=== PATIENT | male | born 1985 | race Caucasian/White ===

== ENCOUNTER 2018-08-02 15:08 | Emergency (ER) | payer OTHER ==
[2018-08-02 15:19] VITALS: RESP 18
[2018-08-02] MEDS ORDERED: KETOROLAC 30 MG/ML 1 ML VIAL IM STA (15:48)
--- NOTE | 2018-08-02 15:51 | ED ---
General Adult HPI - General Chief complaint: Urogenital Stated complaint: Hematuria Time Seen by Provider: 08/02/18 15:15 Source: patient, RN notes reviewed Mode of arrival: ambulatory Limitations: no limitations - History of Present Illness Initial comments: This is a 33-year-old male who presents emergency Department complaining that he has dark urine. Patient states started this morning when he got to work he started having some bilateral back pain in the area of his kidneys. Patient denies any dysuria patient denies any urinary frequency. Patient states she hasn't been sexually active in 6 years. Patient denies any abdominal pain. Patient denies similar symptoms in the past. Patient denies any flank pain according pain or testicular pain. Patient denies any recent fever chills. Patient currently is not experiencing any pain. - Related Data Home Medications Medication Instructions Recorded Confirmed Ibuprofen [Motrin Ib] 400 - 600 mg PO Q6H PRN 08/02/18 08/02/18 Previous Rx's Medication Instructions Recorded Ketorolac [Toradol] 10 mg PO Q6HR #15 tab 08/02/18 Allergies Allergy/AdvReac Type Severity Reaction Status Date / Time No Known Allergies Allergy Verified 08/02/18 15:59 Review of Systems ROS Statement: Those systems with pertinent positive or pertinent negative responses have been documented in the HPI. ROS Other: All systems not noted in ROS Statement are negative. Past Medical History Past Medical History: No Reported History History of Any Multi-Drug Resistant Organisms: None Reported Past Surgical History: Appendectomy Past Psychological History: No Psychological Hx Reported Smoking Status: Current every day smoker Past Alcohol Use History: Occasional Past Drug Use History: None Reported General Exam - General Exam Comments Initial Comments: GENERAL: Patient is well-developed and well-nourished. Patient is nontoxic and well- hydrated and is in no acute distress. ENT: Neck is soft and supple. No significant lymphadenopathy is noted. Oropharynx is clear. Moist mucous membranes. Neck has full range of motion without eliciting any pain. EYES: The sclera were anicteric and conjunctiva were pink and moist. Extraocular movements were intact and pupils were equal round and reactive to light. Eyelids were unremarkable. PULMONARY: Unlabored respirations. Good breath sounds bilaterally. No audible rales rhonchi or wheezing was noted. CARDIOVASCULAR: There is a regular rate and rhythm without any murmurs gallops or rubs. ABDOMEN: Soft and nontender with normal bowel sounds. GENITAL: Genitalia exam showed no acute abnormality no signs of any bleeding. Scrotal exam was normal. Testicle exam was normal. No signs of any hernia SKIN: Skin is clear with no lesions or rashes and otherwise unremarkable. NEUROLOGIC: Patient is alert and oriented x3. Cranial nerves II through XII are grossly intact. Motor and sensory are also intact. Normal speech, volume and content. Symmetrical smile. MUSCULOSKELETAL: Normal extremities with adequate strength and full range of motion. LYMPHATICS: No significant lymphadenopathy is noted PSYCHIATRIC: Normal psychiatric evaluation. Limitations: no limitations Course Vital Signs 08/02/18 15:15 Temperature 99.2 F Pulse Rate 88 Respiratory 18 Rate Blood Pressure 148/95 O2 Sat by Pulse 100 Oximetry Medical Decision Making - Medical Decision Making Patient's CT of the abdomen and pelvis show a 3 mm kidney stone the left side. Patient received Toradol shot emergency department felt considerably better. - Lab Data Result diagrams: 08/02/18 15:48 08/02/18 15:48 Lab Results 08/02/18 08/02/18 08/02/18 Range/Units 15:48 15:48 15:48 WBC 11.9 H (3.8-10.6) k/uL RBC 4.23 L (4.30-5.90) m/uL Hgb 13.9 (13.0-17.5) gm/dL Hct 40.8 (39.0-53.0) % MCV 96.5 (80.0-100.0) fL MCH 32.9 (25.0-35.0) pg MCHC 34.1 (31.0-37.0) g/dL RDW 12.3 (11.5-15.5) % Plt Count 199 (150-450) k/uL Neutrophils % 77 % Lymphocytes % 15 % Monocytes % 6 % Eosinophils % 1 % Basophils % 0 % Neutrophils # 9.1 H (1.3-7.7) k/uL Lymphocytes # 1.7 (1.0-4.8) k/uL Monocytes # 0.7 (0-1.0) k/uL Eosinophils # 0.1 (0-0.7) k/uL Basophils # 0.1 (0-0.2) k/uL Sodium 140 (137-145) mmol/L Potassium 3.7 (3.5-5.1) mmol/L Chloride 105 (98-107) mmol/L Carbon Dioxide 28 (22-30) mmol/L Anion Gap 7 mmol/L BUN 10 (9-20) mg/dL Creatinine 0.62 L (0.66-1.25) mg/dL Est GFR (CKD-EPI)AfAm >90 (>60 ml/min/1.73 sqM) Est GFR (CKD-EPI)NonAf >90 (>60 ml/min/1.73 sqM) Glucose 111 H (74-99) mg/dL Calcium 9.8 (8.4-10.2) mg/dL Total Bilirubin 0.6 (0.2-1.3) mg/dL AST 47 (17-59) U/L ALT 55 (21-72) U/L Alkaline Phosphatase 69 (38-126) U/L Total Protein 7.3 (6.3-8.2) g/dL Albumin 4.6 (3.5-5.0) g/dL Urine Color Light Red Urine Appearance Cloudy (Clear) Urine pH 7.0 (5.0-8.0) Ur Specific [place] 1.008 (1.001-1.035) Urine Protein 1+ H (Negative) Urine Glucose (UA) Negative (Negative) Urine Ketones Negative (Negative) Urine Blood Large H (Negative) Urine Nitrite Negative (Negative) Urine Bilirubin Negative (Negative) Urine Urobilinogen <2.0 (<2.0) mg/dL Ur Leukocyte Esterase Large H (Negative) Urine RBC >182 H (0-5) /hpf Urine WBC <1 (0-5) /hpf Urine Mucus Rare H (None) /hpf Disposition Clinical Impression: Kidney stone Disposition: HOME SELF-CARE Instructions (If sedation given, give patient instructions): Kidney Stones (ED) Prescriptions: Ketorolac [Toradol] 10 mg PO Q6HR #15 tab Is patient prescribed a controlled substance at d/c from ED?: No Referrals: None,Stated [Primary Care Provider] - 1-2 days Time of Disposition: 17:02
[2018-08-02 16:02] LABS: Basophils # (A) 0.1 k/uL (0-0.2); Basophils % (A) 0 %; Eosinophils # (A) 0.1 k/uL (0-0.7); Eosinophils % (A) 1 %; HCT 40.8 % (39.0-53.0); HGB 13.9 gm/dL (13.0-17.5); Lymphocytes # (A) 1.7 k/uL (1.0-4.8); Lymphocytes % (A) 15 %; MCH 32.9 pg (25.0-35.0); MCHC 34.1 g/dL (31.0-37.0); MCV 96.5 fL (80.0-100.0); Mean Platelet Volume 7.4; Monocytes # (A) 0.7 k/uL (0-1.0); Monocytes % (A) 6 %; Neutrophils # (A) 9.1 k/uL (1.3-7.7); Neutrophils % (A) 77 %; Platelet Count 199 k/uL (150-450); RBC 4.23 m/uL (4.30-5.90); RDW 12.3 % (11.5-15.5); WBC 11.9 k/uL (3.8-10.6)
[2018-08-02 16:12] LABS: Appearance,Urine Cloudy (Clear); Bilirubin,Urine Negative (Negative); Blood,Urine Large (Negative); Color,Urine Light Red; Glucose,Urine (UA) Negative (Negative); Ketones,Urine Negative (Negative); Leukocyte Esterase,Urine Large (Negative); Mucus,Urine Rare /hpf; Nitrite,Urine Negative (Negative); Protein,Urine 1+ (Negative); RBC,Urine >182 /hpf (0-5); Specific Gravity,Urine 1.008 (1.001-1.035); Urobilinogen,Urine <2.0 mg/dL (<2.0); WBC,Urine <1 /hpf (0-5)
[2018-08-02 16:14] LABS: ALT 55 U/L (21-72); AST 47 U/L (17-59); Albumin 4.6 g/dL (3.5-5.0); Alkaline Phosphatase 69 U/L (38-126); Anion Gap 7 mmol/L; Blood Urea Nitrogen 10 mg/dL (9-20); Calcium 9.8 mg/dL (8.4-10.2); Carbon Dioxide 28 mmol/L (22-30); Chloride 105 mmol/L (98-107); Glucose 111 mg/dL (74-99); Potassium 3.7 mmol/L (3.5-5.1); Sodium 140 mmol/L (137-145); Total Bilirubin 0.6 mg/dL (0.2-1.3); Total Protein 7.3 g/dL (6.3-8.2)
--- NOTE | 2018-08-02 16:56 | CT ---
EXAMINATION TYPE: CT abdomen pelvis wo con DATE OF EXAM: 08/02/2018 COMPARISON: HISTORY: Hematuria CT DLP: 501.3 mGycm Automated exposure control for dose reduction was used. TECHNIQUE: Helical acquisition of images was performed from the lung bases through the pelvis. FINDINGS: Lung bases are clear. There is no pleural effusion. There is no pericardial effusion. Stomach spleen pancreas liver gallbladder appear normal. Bile ducts are not dilated. There is no adrenal mass. The kidneys have normal size and contour. There is no hydronephrosis. There is 3 mm calculus lower pole right kidney. There is no retroperitoneal adenopathy. There is a 3 mm ca lcification that appears to be in the lower left ureter at the level of the inferior sacroiliac joint . There is only minimal ectasia of the left renal pelvis and left ureter. Bladder distends smoothly. There is no inguinal hernia. There is no free fluid in the pelvis. There i s no mesenteric edema. There is no ascites. There is no sign of free air. There is no sign of a bowel obstruction. Appendix is not definitely seen. There is no sign of a thickened appendix. The bony str uctures are intact. Bony pelvis is intact. IMPRESSION: NONOBSTRUCTING RIGHT RENAL CALCULUS. 3 MM CALCULUS IN THE LOWER LEFT URETER WITH minimal ectasia of the left upper collecting system consi stent with mild obstruction.
[2018-08-02 17:14] VITALS: BP 137/78; PULSE 76; TEMP 98
== END 2018-08-02 17:14 | disposition home or self-care (01) ==
LOC: EC 15:08
DX: N20.0 Calculus of kidney (principal); F17.200 Nicotine dependence, unspecified, uncomplicated; Z90.49 Acquired absence of other specified parts of digestive tract
CPT/HCPCS: 36415; 80053; 85025; 81001; 74176; 99284; 96372; J1885

== ENCOUNTER 2020-02-15 12:19 | Emergency (ER) | payer OTHER ==
--- NOTE | 2020-02-15 12:56 | ED ---
General Adult HPI - General Stated complaint: pickup order Time Seen by Provider: 02/15/20 12:26 Source: patient, police, RN notes reviewed Mode of arrival: ambulatory Limitations: no limitations - History of Present Illness Initial comments: 34-year-old male presents emergency Department with chief complaint of psychiatric evaluation. Patient was brought to emergency department, court pickup order. Patient states that is not homicidal or suicidal he states he does have a history of depression he states that he has made threats of harm himself but states currently is not suicidal. Patient states that his mother, family is worried about him because he reportedly broke some stuff in his house. States that this was nothing of major and states that he has no complaints at this time. Denies any prior psychiatric admissions. - Related Data Home Medications Medication Instructions Recorded Confirmed No Known Home Medications 02/15/20 02/15/20 Allergies Allergy/AdvReac Type Severity Reaction Status Date / Time No Known Allergies Allergy Verified 02/15/20 13:18 Review of Systems ROS Statement: Those systems with pertinent positive or pertinent negative responses have been documented in the HPI. ROS Other: All systems not noted in ROS Statement are negative. Past Medical History Past Medical History: No Reported History History of Any Multi-Drug Resistant Organisms: None Reported Past Surgical History: Appendectomy Past Psychological History: No Psychological Hx Reported Smoking Status: Current every day smoker Past Alcohol Use History: Daily, Heavy Past Drug Use History: Marijuana General Exam Limitations: no limitations General appearance: alert, in no apparent distress Head exam: Present: atraumatic, normocephalic, normal inspection Eye exam: Present: normal appearance, PERRL, EOMI. Absent: scleral icterus, conjunctival injection, periorbital swelling ENT exam: Present: normal exam, mucous membranes moist Neck exam: Present: normal inspection, full ROM. Absent: tenderness, meningismus, lymphadenopathy Respiratory exam: Present: normal lung sounds bilaterally. Absent: respiratory distress, wheezes, rales, rhonchi, stridor Cardiovascular Exam: Present: regular rate, normal rhythm, normal heart sounds. Absent: systolic murmur, diastolic murmur, rubs, gallop, clicks GI/Abdominal exam: Present: soft, normal bowel sounds. Absent: distended, tenderness, guarding, rebound, rigid Neurological exam: Present: alert, oriented X3, CN II-XII intact Psychiatric exam: Present: flat affect Skin exam: Present: warm, dry, intact, normal color. Absent: rash Course Vital Signs 02/15/20 12:35 Temperature 98.5 F Pulse Rate 88 Respiratory 16 Rate Blood Pressure 159/103 O2 Sat by Pulse 98 Oximetry Medical Decision Making - Medical Decision Making 34-year-old presented for pickup order psychiatric evaluation patient contracts to safety is not suicidal homicidal be discharged. - Lab Data Lab Results 02/15/20 Range/Units 13:03 Urine Opiates Screen Not Detected (NotDetected) Ur Oxycodone Screen Not Detected (NotDetected) Urine Methadone Screen Not Detected (NotDetected) Ur Propoxyphene Screen Not Detected (NotDetected) Ur Barbiturates Screen Not Detected (NotDetected) U Tricyclic Antidepress Not Detected (NotDetected) Ur Phencyclidine Scrn Not Detected (NotDetected) Ur Amphetamines Screen Detected H (NotDetected) U Methamphetamines Scrn Detected H (NotDetected) U Benzodiazepines Scrn Not Detected (NotDetected) Urine Cocaine Screen Not Detected (NotDetected) U Marijuana (THC) Screen Detected H (NotDetected) Disposition Clinical Impression: Depression Disposition: HOME SELF-CARE Condition: Stable Instructions (If sedation given, give patient instructions): Depression (ED) Additional Instructions: Please return to the Emergency Department if symptoms worsen or any other concerns. Is patient prescribed a controlled substance at d/c from ED?: No Referrals: None,Stated [Primary Care Provider] - 1-2 days Time of Disposition: 14:56
[2020-02-15 14:07] LABS: Amphetamine Screen,Urine Detected (NotDetected); Barbiturate Screen,Urine Not Detected (NotDetected); Benzodiazepines Screen,Urine Not Detected (NotDetected); Cocaine Screen,Urine Not Detected (NotDetected); Methadone Screen, Urine Not Detected (NotDetected); Opiate Screen,Urine Not Detected (NotDetected); Oxycodone Screen, Urine Not Detected (NotDetected); Phencyclidine Screen,Urine Not Detected (NotDetected); Tricyclic Antidepressant,Urine Not Detected (NotDetected); Urn Cannabinoid Scrn Detected (NotDetected)
[2020-02-15 15:05] VITALS: BP 150/102; PULSE 99; RESP 14; TEMP 98.6
== END 2020-02-15 15:02 | disposition home or self-care (01) ==
LOC: EC 12:19
DX: F32.9 Major depressive disorder, single episode, unspecified (principal); F17.200 Nicotine dependence, unspecified, uncomplicated
CPT/HCPCS: 80306; 82075; 99284

== ENCOUNTER 2020-09-23 20:04 | Emergency (ER) | payer OTHER ==
[2020-09-23 20:18] VITALS: BP 143/90; PULSE 103; RESP 20; TEMP 98.7
--- NOTE | 2020-09-23 20:57 | XR ---
EXAMINATION TYPE: XR ribs LT w pa chest xray DATE OF EXAM: 09/23/2020 COMPARISON: NONE HISTORY: Rib pain TECHNIQUE: 5 views FINDINGS: Heart and mediastinum are normal. Lungs are clear of consolidation. There is no pleural eff usion or pneumothorax. The left ribs appear intact. IMPRESSION: Normal chest. Normal left ribs.
[2020-09-23] MEDS ORDERED: ACET/COD 300 MG/30 MG STARTER PACK 6 TAB BTL PO STA (21:26)
[2020-09-23] MEDS ORDERED: LIDOCAINE 5% PATCH TOPICAL STA (21:26)
[2020-09-23] MEDS ORDERED: MORPHINE SULFATE 4 MG/ML SYRINGE IM STA (21:26)
[2020-09-23] MEDS ORDERED: KETOROLAC 15 MG/ML 1 ML VIAL IM STA (21:26)
--- NOTE | 2020-09-23 21:28 | ED ---
General Adult HPI - General Chief complaint: Chest Pain Stated complaint: chest pain Time Seen by Provider: 09/23/20 20:32 Source: patient, family Mode of arrival: ambulatory Limitations: no limitations - History of Present Illness Initial comments: 35-year-old male patient presents to the emergency department today for evaluation of left lateral rib pain. She states that 5 days ago he was wrestling around with another melvni, states that he did fall landed on his ribs. States his been having rib pain since then. Pain worsens with deep breathing or coughing. States movement makes the pain worse as well. Denies any neck or back pain. Denies any other injuries. Denies any hemoptysis. States he has been taking ibuprofen without relief. Patient denies any headache, neck pain, back pain, shortness of breath, dizziness, weakness, abdominal pain, nausea, vomiting, or difficulties with bowel movements or urination. - Related Data Previous Rx's Medication Instructions Recorded HYDROcodone/APAP 5-325MG [Temple 5] 1 each PO Q6HR PRN #12 tab 09/23/20 Lidocaine 5% Patch [Lidoderm] 1 patch TOPICAL DAILY #30 patch 09/23/20 Allergies Allergy/AdvReac Type Severity Reaction Status Date / Time No Known Allergies Allergy Verified 09/23/20 20:18 Review of Systems ROS Statement: Those systems with pertinent positive or pertinent negative responses have been documented in the HPI. ROS Other: All systems not noted in ROS Statement are negative. Past Medical History Past Medical History: No Reported History History of Any Multi-Drug Resistant Organisms: None Reported Past Surgical History: Appendectomy Past Psychological History: No Psychological Hx Reported Smoking Status: Current every day smoker Past Alcohol Use History: Daily, Heavy Past Drug Use History: Marijuana General Exam Limitations: no limitations General appearance: alert, in no apparent distress Neck exam: Present: normal inspection, full ROM. Absent: tenderness, meningismus, lymphadenopathy Respiratory exam: Present: normal lung sounds bilaterally, chest wall tenderness (Left lateral ribs, there is some faint ecchymosis noted over the left lateral ribs as well.). Absent: respiratory distress, wheezes, rales, rhonchi, stridor Cardiovascular Exam: Present: regular rate, normal rhythm, normal heart sounds. Absent: systolic murmur, diastolic murmur, rubs, gallop, clicks GI/Abdominal exam: Present: soft, normal bowel sounds. Absent: distended, tenderness, guarding, rebound, rigid Back exam: Present: normal inspection. Absent: vertebral tenderness Neurological exam: Present: alert, oriented X3, CN II-XII intact Psychiatric exam: Present: normal affect, normal mood Skin exam: Present: warm, dry, intact, normal color. Absent: rash Course Vital Signs 09/23/20 09/23/20 20:14 20:34 Temperature 98.7 F Pulse Rate 103 H Respiratory 20 20 Rate Blood Pressure 143/90 O2 Sat by Pulse 98 Oximetry EKG Findings - EKG Comments: EKG Findings:: EKG obtained at 2021 shows normal sinus rhythm with a ventricular rate of 91, P interval 138, QRS duration 92, QT 326, QTc 400. No evidence of ST elevation or depression. Medical Decision Making - Medical Decision Making 35-year-old male patient presents to the emergency department today for evaluation of left lateral rib tenderness and pain. Physical examination did reveal some faint ecchymosis and tenderness over the left lateral ribs. Lungs are clear to auscultation. X-ray of the left ribs and chest was unremarkable. No evidence for displaced rib fracture. I did discuss possibility of occult hairline fracture. He does have an incentive spirometer at home. He is given pain medications. Instructed to follow-up with his primary care physician for recheck in 1-2 days. Return parameters were discussed in detail. He verbalizes understanding and agrees with this plan. My attending is Dr. Burnett. - Radiology Data Radiology results: report reviewed, image reviewed 5 views of the left ribs and chest are obtained. Note normal chest, normal left ribs. Disposition Clinical Impression: Rib pain on left side Disposition: HOME SELF-CARE Condition: Good Instructions (If sedation given, give patient instructions): Rib Fracture (ED) Additional Instructions: Take medications as directed. Perform coughing and deep breathing exercises 10 times an hour while awake. Use incentive spirometer 10 times hour while awake as well. Follow-up with your primary care physician for recheck in 1-2 days. Return for any new, worsening, or concerning symptoms. Prescriptions: Lidocaine 5% Patch [Lidoderm] 1 patch TOPICAL DAILY #30 patch HYDROcodone/APAP 5-325MG [Temple 5] 1 each PO Q6HR PRN #12 tab PRN Reason: Pain Is patient prescribed a controlled substance at d/c from ED?: Yes When asked, does pt state using other controlled substances?: No If prescribed controlled substance>3 days was MAPS reviewed?: Prescribed <3 Days If opioid is for acute pain is fill amount 7 days or less?: Yes If Rx opioid, was Start Talking consent form obtained?: Yes Referrals: None,Stated [Primary Care Provider] - 1-2 days Time of Disposition: 21:28
== END 2020-09-23 21:49 | disposition home or self-care (01) ==
LOC: EC 20:04
DX: S20.212A Contusion of left front wall of thorax, initial encounter (principal); F17.200 Nicotine dependence, unspecified, uncomplicated; W19.XXXA Unspecified fall, initial encounter; Y93.72 Activity, wrestling
CPT/HCPCS: 93005; 71101; 99284; 96372 ×2; J2270; J1885

== ENCOUNTER 2021-01-26 00:24 | Observation (INO) | payer OTHER ==
--- NOTE | 2021-01-26 02:09 | ED ---
Psych HPI <Raul French - Last Filed: 01/26/21 17:06> - General Source: patient, family, RN notes reviewed, old records reviewed Mode of arrival: ambulatory Limitations: no limitations - History of Present Illness MD Complaint: feels depressed -: days(s) Associated Psychiatric Symptoms: depression, suicidal ideation Quality: constant Improves With: none Worsens With: alcohol Context: not taking psychiatric medications, significant life stressor Associated Symptoms: denies other symptoms Treatments Prior to Arrival: placed on mental health hold <Vaibhav Burnett - Last Filed: 01/27/21 01:06> - General Chief Complaint: Psychiatric Symptoms Stated Complaint: Mental Health, Alcohol Time Seen by Provider: 01/26/21 01:08 - History of Present Illness Initial Comments: This is a 35-year-old male to the emergency department today. Patient presents today for evaluation of psychiatric illness with significant alcohol intoxication. Patient has significant INTOXICATION here in the ER poor historian secondary to stay he shouldn't does state that he has significant depression issues (Vaibhav Burnett) - Related Data Home Medications Medication Instructions Recorded Confirmed No Known Home Medications 01/26/21 01/26/21 Allergies Allergy/AdvReac Type Severity Reaction Status Date / Time No Known Allergies Allergy Verified 01/26/21 07:05 Review of Systems ROS Other: All systems not noted in ROS Statement are negative. <Raul French - Last Filed: 01/26/21 17:06> ROS Other: All systems not noted in ROS Statement are negative. <Vaibhav Burnett - Last Filed: 01/27/21 01:06> ROS Statement: Those systems with pertinent positive or pertinent negative responses have been documented in the HPI. Past Medical History Past Medical History: No Reported History History of Any Multi-Drug Resistant Organisms: None Reported Past Surgical History: Appendectomy Past Psychological History: Anxiety, Depression Smoking Status: Current every day smoker Past Alcohol Use History: Daily, Heavy Past Drug Use History: Marijuana <Vaibhav Burnett - Last Filed: 01/27/21 01:06> General Exam Limitations: no limitations General appearance: alert, in no apparent distress, appears intoxicated Head exam: Present: atraumatic, normocephalic, normal inspection Eye exam: Present: normal appearance, PERRL, EOMI. Absent: scleral icterus, conjunctival injection, periorbital swelling ENT exam: Present: normal exam, mucous membranes moist Neck exam: Present: normal inspection. Absent: tenderness, meningismus, lymphadenopathy Respiratory exam: Present: normal lung sounds bilaterally. Absent: respiratory distress, wheezes, rales, rhonchi, stridor Cardiovascular Exam: Present: regular rate, normal rhythm, normal heart sounds. Absent: systolic murmur, diastolic murmur, rubs, gallop, clicks GI/Abdominal exam: Present: soft, normal bowel sounds. Absent: distended, tenderness, guarding, rebound, rigid Extremities exam: Present: normal inspection, full ROM, normal capillary refill. Absent: tenderness, pedal edema, joint swelling, calf tenderness Back exam: Present: normal inspection Neurological exam: Present: alert, oriented X3, CN II-XII intact Psychiatric exam: Present: normal affect, normal mood Skin exam: Present: warm, dry, intact, normal color. Absent: rash <Vaibhav Burnett - Last Filed: 01/27/21 01:06> Course <Vaibhav Burnett - Last Filed: 01/27/21 01:06> Vital Signs 01/26/21 01/26/21 01/26/21 00:28 03:00 06:00 Temperature 98.5 F Pulse Rate 80 66 77 Respiratory 22 18 18 Rate Blood Pressure 154/104 139/81 O2 Sat by Pulse 98 95 Oximetry 01/26/21 01/26/21 01/26/21 08:00 09:00 10:00 Temperature Pulse Rate Respiratory 18 18 18 Rate Blood Pressure O2 Sat by Pulse Oximetry 01/26/21 01/26/21 11:00 18:00 Temperature 99 F Pulse Rate 90 Respiratory 18 18 Rate Blood Pressure 115/87 O2 Sat by Pulse 97 Oximetry - Reevaluation(s) Reevaluation #1: 01/26/21 02:15 Medical record is reviewed (Vaibhav Burnett) Medical Decision Making <Raul French - Last Filed: 01/26/21 17:06> <Vaibhav Burnett - Last Filed: 01/27/21 01:06> - Medical Decision Making Patient care signed out to me by previous shift physician Dr. Kendall. Patient is a 35-year-old male presents to emergency Department for suicidal ideation and alcohol intoxication. Patient was pending sobriety and EPS evaluation. Patient was initially to be admitted to 3 for EPS recommendations however patient is covered positive. He is evaluated at bedside at 4:00 PM. Denies any respiratory symptoms however he has been having chills for the last 3 days. Vital signs reviewed. Patient's afebrile. I bedside he is not showing any signs respiratory distress is not hypoxic. Patient will be admitted to medicine floor. He is given monoclonal antibodies. Psychiatry will be on consult. (Raul French) 35 male DF for evaluation of alcohol intoxication patient is found to have positive coronavirus and will be admitted for coronavirus and psychiatric evaluation and treatment (Vaibhav Burnett) - Lab Data Lab Results 01/26/21 Range/Units 15:12 Coronavirus (PCR) Detected A (Not Detectd) Disposition <Raul French - Last Filed: 01/26/21 17:06> <Vaibhav Burnett - Last Filed: 01/27/21 01:06> Clinical Impression: Suicidal ideation, COVID-19 Disposition: ADMITTED IP TO THIS HOSP Condition: Fair
[2021-01-26] MEDS ORDERED: NALOXONE 0.4 MG/ML 1 ML VIAL IV PRN (16:13)
[2021-01-26] MEDS ORDERED: SODIUM CHLORIDE 0.9% 50 ML IVPB ONE (17:00)
[2021-01-26] MEDS ORDERED: CASIRIVIMAB (REGN10933) (EUA) 600 MG, IMDEVIMAB (REGN10987) (EUA) 600 MG in SODIUM CHLO... IVPB ONE (17:00)
--- NOTE | 2021-01-26 18:23 | P.HPIM ---
History of Present Illness H&P Date: 01/26/21 Chief Complaint: Suicidal ideation, Covid positive 35-year-old man, unvaccinated, with history of major depressive disorder, marijuana use presented with suicidal ideation and attempted suicide. Patient has relative at bedside who informs me that patient has been having mental health issues in the last few days, approximately 2 days ago had an episode where he intended to shoot himself in the head with a gun. He was finally convinced to come into the emergency room for mental health evaluation. He was seen by EPS who recommended admission to the mental health unit, however, patient tested positive for Covid. Therefore, medicine was asked to admit the patient with psychiatry consult. Patient has some chills, but is not dyspneic or hypoxic nor is he feverish, no loss of smell, no myalgias. No other issues including chest pain, nausea, vomiting, palpitations, syncope, PCP, abdominal pain, constipation, diarrhea, numbness/weakness, dysuria, dyschezia. Patient was given monoclonal antibody in the emergency room. Patient is hemodynamically stable. No labs or imaging to review. Review of Systems All Systems reviewed and pertinent positives and negatives noted in HPI, all other symptoms are negative Past Medical History Past Medical History: No Reported History History of Any Multi-Drug Resistant Organisms: None Reported Past Surgical History: Appendectomy Past Psychological History: Anxiety, Depression Smoking Status: Current every day smoker Past Alcohol Use History: Daily, Heavy Past Drug Use History: Marijuana Medications and Allergies Home Medications Medication Instructions Recorded Confirmed Type No Known Home Medications 01/26/21 01/26/21 History Allergies Allergy/AdvReac Type Severity Reaction Status Date / Time No Known Allergies Allergy Verified 01/26/21 07:05 Physical Exam Osteopathic Statement: *. No significant issues noted on an osteopathic structural exam other than those noted in the History and Physical/Consult. Vitals: Vital Signs Temp Pulse Resp BP Pulse Ox 01/26/21 11:00 18 01/26/21 10:00 18 01/26/21 09:00 18 01/26/21 08:00 18 01/26/21 06:00 77 18 01/26/21 03:00 66 18 139/81 95 01/26/21 00:28 98.5 F 80 22 154/104 98 Intake and Output 01/26/21 01/26/21 01/26/21 06:59 14:59 22:59 Other: Weight 79.379 kg Gen: awake, alert HEENT: normocephalic, atraumatic, good hearing acuity, moist mucous membranes Resp: good air exchange, breathing comfortably with no accessory muscle use CVS: good distal perfusion x 4, GI: soft, NTTP, ND : no SPT, no CVAT, marley catheter not present MSK: no pitting edema, no clubbing Neuro: non-focal, moving all extremities Psych: cooperative, euthymic mood Results Labs: Abnormal Lab Results - Last 24 Hours (Table) 01/26/21 Range/Units 15:12 Coronavirus (PCR) Detected A (Not Detectd) Assessment and Plan Assessment: Major depressive disorder Suicidal ideation with intent -Psychiatry consult -One-to-one sitter Covid -Contact/droplet precautions -Quarantine for next 14 days Patient is full code
--- NOTE | 2021-01-27 16:13 | P.PN ---
Subjective Progress Note Date: 01/27/21 No new complaints. Pending psych consult. Objective - Vital Signs Vital signs: Vital Signs Temp 99.1 F 01/27/21 06:33 Pulse 88 01/27/21 10:00 Resp 18 01/27/21 10:00 BP 142/72 01/27/21 10:00 Pulse Ox 99 01/27/21 10:00 - Exam Gen: awake, alert HEENT: normocephalic, atraumatic, good hearing acuity, moist mucous membranes Resp: good air exchange, breathing comfortably with no accessory muscle use CVS: good distal perfusion x 4, GI: soft, NTTP, ND : no SPT, no CVAT, marley catheter not present MSK: no pitting edema, no clubbing Neuro: non-focal, moving all extremities Psych: cooperative, euthymic mood Assessment and Plan Assessment: Major depressive disorder Suicidal ideation with intent -Psychiatry consult -One-to-one sitter Covid -Contact/droplet precautions -Quarantine for next 13 days Patient is full code
[2021-01-28 06:35] VITALS: TEMP 98.9
[2021-01-28 11:50] VITALS: RESP 18
--- NOTE | 2021-01-28 14:16 | P.CN ---
Psychiatric Consult - . Consult date: 01/28/21 Consult:: IDENTIFYING DATA: Ishaan is a 35-year-old single male who presented to the ED with acute alcohol intoxication and suicidal ideation. HISTORY OF PRESENT ILLNESS: He presented to the ED with a breath alcohol level of 308. He complained about feeling depressed and having suicidal ideation. He perseverated about discovering the body of the girlfriend after she hung herself in a closet. He feels guilty over her and ruminates over the trauma when he is intoxicated. He expressed suicidal thoughts to the EPS nurse did not express a specific plan. He was not referred for psychiatric admission because he was COVID positive. I evaluated him after he had been in the ED for 72 hours. He described moderate alcohol withdrawal symptoms including diaphoresis, tremor, and nausea. He denied tactile, auditory or visual disturbances. He stated that he "always" become suicidal when he drinks too much." He has a 10 year history of an alcohol use disorder. He drinks between one pint and one fifth of liquor daily. He is had no period of sobriety during the 10 years. He stated the only time he has been sobor has been the last 3 days in the ED. He has never participated in a residential substance abuse treatment program. He is never attended Alcoholics Anonymous. He has never experienced severe all symptoms suggestive of delirium. He denied use of other drugs with the exception of marijuana. He complains of feelings of depression denied hopelessness, helplessness or worthlessness. He denied history of suicide attempts or gestures. He denied persistent anxiety but described recurrent intrusive thoughts about the suicide of an ex-girlfriend. He denied periods of elevated mood or sustained irritability suggestive of suyapa or hypomania. He denied experiencing auditory, visual or olfactory hallucinations or other symptoms of psychosis. PAST PSYCHIATRIC HISTORY: He denied a history of psychiatric treatment he has had no psychiatric hospitalizations. PAST MEDICAL HISTORY: See medical history and physical ALLERGIES: Known drug ALLERGIES SUBSTANCE USE HISTORY: As above FAMILY PSYCHIATRIC/SUBSTANCE USE HISTORY: Unaware of family history of substance use problems. SOCIAL HISTORY: His born and raised in [place]. He graduated from high school. 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 He is unmarried and has no children. He has a close relationship with an ex-girlfriend's child. He currently lives with another girlfriend. MENTAL STATUS EXAM: He presented as a somewhat disheveled appearing male was tremulous and restless. He made eye contact and attended to the interview. He had no distinction features are prominent physical abnormalities. He had a distressed facial expression. He was alert and oriented to person, place and time. He is a prominent tremor but is not disturbance of psychomotor activity. His speech was spontaneous with normal rate, volume and rhythm. His affect was dysphoric. He denied suicidal ideation and wishes. No homicidal ideation. He denied feeling hopeless, helpless or worthless. About his all call use and the of the ex-girlfriend. He did not express phobias, ideas reference, paranoid ideation, magical ideation or delusions. His thinking was concrete but his associations were coherent, logical directed. He denied hallucinations did not appear to be responding to internal stimuli. IMPRESSIONS: He is 35-year-old male who has a 10+ year history of an alcohol use disorder. He has had no significant period of sobriety during this time. He has also not participated in substance abuse treatment. We discussed substance abuse treatment. He was ambivalent about entering a treatment program or participating in Alcoholics Anonymous. There is no indication for transfer to the psychiatric unit. He would benefit from referral for residential substance abuse treatment. DIAGNOSIS: Alcohol withdrawal, alcohol use disorder severe, cannabis use disorder, PTSD (provisional) RECOMMENDATION: Is no indication for transfer to a psychiatric unit at this time. He would benefit from continued medical detoxification consider he may be a risk for severe alcohol withdrawal including delirium. Consult social work to provide information about residential substance abuse treatment programs. Thank you for this consult. Psychiatry will sign off the case. 01/28/21 13:58
--- NOTE | 2021-01-28 14:46 | P.DS ---
Providers Date of admission: 01/26/21 17:13 Expected date of discharge: 01/28/21 Attending physician: Aida Shelton MD Consults: 01/26/21 16:14 Consult Physician Routine Consulting Provider: Jose L Fontenot Consult Reason/Comments: suicidal ideation Do you want consulting provider notified?: Yes Primary care physician: Stated None Hospital Course: Major depressive disorder Suicidal ideation with intent -Psychiatry consulted and observed patient for 2 days, prior to clearing him for outpatient evaluation. See psychiatry and EPS notes for further details. Covid -Contact/droplet precautions -Quarantine for next 12 days after discharge -received monoclonal ab while in house. Assessment: Gen: awake, alert HEENT: normocephalic, atraumatic, good hearing acuity, moist mucous membranes Resp: good air exchange, breathing comfortably with no accessory muscle use CVS: good distal perfusion x 4, GI: soft, NTTP, ND : no SPT, no CVAT, marley catheter not present MSK: no pitting edema, no clubbing Neuro: non-focal, moving all extremities Psych: cooperative, euthymic mood Patient Condition at Discharge: Good Plan - Discharge Summary New Discharge Prescriptions: No Action No Known Home Medications Discharge Medication List No Known Home Medications 01/26/21 [History] Follow up Appointment(s)/Referral(s): None,Stated [Primary Care Provider] - 1-2 days Discharge Disposition: HOME SELF-CARE
[2021-01-28 15:00] VITALS: BP 137/89; PULSE 86
== END 2021-01-28 15:01 | disposition home or self-care (01) ==
LOC: EC 00:24 → 4SSUR 17:13
PROVIDERS: ADMIT Internal Medicine; ATTEND Internal Medicine
DX: U07.1 COVID-19 (principal); F32.9 Major depressive disorder, single episode, unspecified; R45.851 Suicidal ideations; R68.83 Chills (without fever); F10.229 Alcohol dependence with intoxication, unspecified; F10.239 Alcohol dependence with withdrawal, unspecified; F43.10 Post-traumatic stress disorder, unspecified; F17.200 Nicotine dependence, unspecified, uncomplicated; F41.9 Anxiety disorder, unspecified; Y90.8 Blood alcohol level of 240 mg/100 ml or more; Z90.49 Acquired absence of other specified parts of digestive tract
CPT/HCPCS: 82075; 99285; 87635; G0378 ×3; Q0243

== ENCOUNTER 2021-11-27 23:23 | Emergency (ER) | payer OTHER ==
[2021-11-27] MEDS ORDERED: SODIUM CHLORIDE 0.9% 1,000 ML IV ONE (23:39)
[2021-11-27] MEDS ORDERED: THIAMINE 100 MG/ML 2 ML VIAL IVP STA (23:39)
[2021-11-27] MEDS ORDERED: DIPH,PERTUS(ACELL)TETVAC-LF 0.5 ML VIAL IM ONE (23:40)
--- NOTE | 2021-11-27 23:47 | ED ---
Trauma HPI - General Stated Complaint: Fall Time Seen by Provider: 11/27/21 23:34 Source: police, EMS, RN notes reviewed Limitations: altered mental status (Alcohol intoxication) - History of Present Illness Initial Comments: Patient states he was at a friend's house, drank a pint of hard liquor and ended up falling outside. Patient was found out in the street after a fall by the police. Patient arrives via EMS. Patient complaining of pain to the right facial area. Denies pain otherwise. Patient states he did not lose consciousness. Unknown last tetanus. Review of systems is limited due to patient's level of intoxication, however, he denies any chest pain or shortness of breath. No abdominal pain. No vision or hearing disturbance. No headache. No neck pain. No arm or leg pain. No n ausea or vomiting. MD Complaint: fall -: unknown Loss of Consciousness: no Location: face - Related Data Home Medications Medication Instructions Recorded Confirmed No Known Home Medications 01/26/21 01/26/21 Allergies Allergy/AdvReac Type Severity Reaction Status Date / Time No Known Allergies Allergy Verified 11/27/21 23:52 Review of Systems ROS Statement: Those systems with pertinent positive or pertinent negative responses have been documented in the HPI. ROS Other: All systems not noted in ROS Statement are negative. Past Medical History Past Medical History: No Reported History History of Any Multi-Drug Resistant Organisms: None Reported Past Surgical History: Appendectomy Past Psychological History: Anxiety, Depression Smoking Status: Current every day smoker Past Alcohol Use History: Daily, Heavy Past Drug Use History: Marijuana General Exam General appearance: alert, in no apparent distress, appears intoxicated Head exam: Present: atraumatic, normocephalic, normal inspection Eye exam: Present: normal appearance, PERRL, EOMI. Absent: scleral icterus, c onjunctival injection, periorbital swelling ENT exam: Present: normal oropharynx, mucous membranes moist, TM's normal bilaterally, normal external ear exam, other (Swelling and tenderness to the right infraorbital area. Extraocular movements are intact. No evidence of entr apment. Nasal exam is normal, overlying abrasion). Absent: mucous membranes dry Expanded Ear exam: Present: normal external inspection Mouth exam: Present: normal external inspection. Absent: drooling, trismus, muffled voice, tongue normal, tongue elevation Teeth exam: Present: dental caries. Absent: fractured tooth #, dental tenderness # Throat exam: normal inspection. negative: tonsillar erythema, tonsillomegaly, tonsillar exudate, R peritonsillar mass, L peritonsillar mass Neck exam: Present: normal inspection, full ROM. Absent: tenderness, meningismus, lymphadenopathy Respiratory exam: Present: normal lung sounds bilaterally. Absent: respiratory distress, wheezes, rales, rhonchi, stridor, chest wall tenderness, accessory mus khurram use Cardiovascular Exam: Present: regular rate, normal rhythm, normal heart sounds. Absent: systolic murmur, diastolic murmur, rubs, gallop, clicks GI/Abdominal exam: Present: soft, normal bowel sounds. Absent: distended, tenderness, guarding, rebound, rigid Extremities exam: Present: normal inspection, full ROM, normal capillary refill. Absent: tenderness, pedal edema, joint swelling, calf tenderness Back exam: Present: normal inspection Neurological exam: Present: alert (But intoxicated), oriented X3, CN II-XII intact Psychiatric exam: Present: normal mood. Absent: agitated, anxious, homicidal ideation, suicidal ideation Skin exam: Present: warm, dry, intact, normal color. Absent: rash Course Vital Signs 11/27/21 23:41 Temperature 98.4 F Pulse Rate 105 H Respiratory 18 Rate Blood Pressure 143/93 O2 Sat by Pulse 96 Oximetry Medical Decision Making - Medical Decision Making Intoxicated male with right facial trauma. We will order CT scans of the brain, cervical spine, facial bones. Tetanus will be updated. Plan for reevaluation. Does not appear to have any other significant injuries. Patient is alert, cranial nerves II through XII are intact. [place] Coma Scale is 15. Large right-sided facial hematoma seen on computed tomography scan. No other acute findings noted. No acute findings on CT of brain or cervical spine. Patient's spouse is here to take the patient home. Patient is intoxicated. Spouse agrees to stay with the patient until he is sober. All diagnostic findings discussed with the patient. Patient does have laboratory work pending. We'll monitor call the patient if any discord and labs need to be addressed. Patient felt alcohol level comes back at 426. Discussed this with both the patient and his . Patient is obscene drunk but is able to speak and give an adequate history. Patient in no significant distress. Again, told to stay with the patient until he is sober, I did tell her this would be 17-1/2 hours. Patient was told to return to the ER for any signs or symptoms worsen. Told to return immediately if any other problems arise. All questions answered. Treatment plan discussed. Patient in agreement Every effort has been made to ensure accuracy of this dictation. However, due to the limitations of electronic medical records and dictation devices, errors in charting still occur. Wood Room Supervisor Dr. Burnett - Lab Data Result diagrams: 11/27/21 23:28 11/27/21 23:28 Lab Results 11/27/21 11/27/21 Range/Units 23:28 23:28 WBC 11.0 H (3.8-10.6) k/uL RBC 4.64 (4.30-5.90) m/uL Hgb 15.5 (13.0-17.5) gm/dL Hct 47.0 (39.0-53.0) % MCV 101.3 H (80.0-100.0) fL MCH 33.4 (25.0-35.0) pg MCHC 33.0 (31.0-37.0) g/dL RDW 12.4 (11.5-15.5) % Plt Count 273 (150-450) k/uL MPV 7.8 Neutrophils % 55 % Lymphocytes % 34 % Monocytes % 6 % Eosinophils % 1 % Basophils % 1 % Neutrophils # 6.0 (1.3-7.7) k/uL Lymphocytes # 3.7 (1.0-4.8) k/uL Monocytes # 0.7 (0-1.0) k/uL Eosinophils # 0.1 (0-0.7) k/uL Basophils # 0.1 (0-0.2) k/uL Sodium 147 H (137-145) mmol/L Potassium 3.9 (3.5-5.1) mmol/L Chloride 108 H (98-107) mmol/L Carbon Dioxide 22 (22-30) mmol/L Anion Gap 17 mmol/L BUN 8 L (9-20) mg/dL Creatinine 0.56 L (0.66-1.25) mg/dL Est GFR (CKD-EPI)AfAm >90 (>60 ml/min/1.73 sqM) Est GFR (CKD-EPI)NonAf >90 (>60 ml/min/1.73 sqM) Glucose 121 H (74-99) mg/dL Calcium 9.4 (8.4-10.2) mg/dL Magnesium 1.8 (1.6-2.3) mg/dL Total Bilirubin 0.5 (0.2-1.3) mg/dL AST 39 (17-59) U/L ALT 27 (4-49) U/L Alkaline Phosphatase 64 (38-126) U/L Total Protein 7.5 (6.3-8.2) g/dL Albumin 4.8 (3.5-5.0) g/dL Serum Alcohol 426 H* mg/dL Disposition Clinical Impression: Contusion of face, Alcohol intoxication Disposition: HOME SELF-CARE Condition: Good Instructions (If sedation given, give patient instructions): Head Injury (ED), Alcohol Intoxication (ED), Facial Contusion (ED) Additional Instructions: Follow-up with your regular physician as directed. Return to the ER immediately if any symptoms worsen, new symptoms arise, or any other problems develop. Keep the abrasions clean with soap and water. Apply thin layer of antibiotic ointment such as Neosporin or triple antibiotic ointment. Is patient prescribed a controlled substance at d/c from ED?: No Referrals: None,Stated [Primary Care Provider] - 1-2 days Time of Disposition: 00:28
[2021-11-27 23:49] VITALS: BP 143/93; PULSE 105; RESP 18; TEMP 98.4
[2021-11-27 23:54] LABS: Basophils # (A) 0.1 k/uL (0-0.2); Basophils % (A) 1 %; Eosinophils # (A) 0.1 k/uL (0-0.7); Eosinophils % (A) 1 %; HGB 15.5 gm/dL (13.0-17.5); Lymphocytes # (A) 3.7 k/uL (1.0-4.8); Lymphocytes % (A) 34 %; MCH 33.4 pg (25.0-35.0); MCV 101.3 fL (80.0-100.0); Mean Platelet Volume 7.8; Monocytes # (A) 0.7 k/uL (0-1.0); Monocytes % (A) 6 %; Neutrophils % (A) 55 %; Platelet Count 273 k/uL (150-450); RBC 4.64 m/uL (4.30-5.90); RDW 12.4 % (11.5-15.5)
[2021-11-28 00:09] LABS: ALT 27 U/L (4-49); AST 39 U/L (17-59); African American GFR (CKD) >90 (>60 ml/min/1.73 sqM); Albumin 4.8 g/dL (3.5-5.0); Alkaline Phosphatase 64 U/L (38-126); Anion Gap 17 mmol/L; Blood Urea Nitrogen 8 mg/dL (9-20); Calcium 9.4 mg/dL (8.4-10.2); Carbon Dioxide 22 mmol/L (22-30); Chloride 108 mmol/L (98-107); Glucose 121 mg/dL (74-99); Magnesium 1.8 mg/dL (1.6-2.3); Non-African American GFR(CKD) >90 (>60 ml/min/1.73 sqM); Potassium 3.9 mmol/L (3.5-5.1); Sodium 147 mmol/L (137-145); Total Bilirubin 0.5 mg/dL (0.2-1.3); Total Protein 7.5 g/dL (6.3-8.2)
--- NOTE | 2021-11-28 00:12 | CT ---
EXAMINATION TYPE: CT brain cspine wo con DATE OF EXAM: 11/28/2021 COMPARISON: None HISTORY: swelling to right cheek bone after fall CT DLP: 1171.9 mGycm Automated exposure control for dose reduction was used. Images of the brain and cervical spine obtained with no contrast. The ventricles and sulci appear normal. There is no mass effect or midline shift. No sign of intracra nial hemorrhage. Calvarium is intact. Skull base is intact. There is normal aeration of the mastoid s inuses. The cervical vertebra have normal alignment. No compression fracture. Facet joints are intact. There is mild spurring at C5-6 endplates. IMPRESSION: Negative CT scan of the brain. Mild degenerative disc changes at C5-6. No fracture seen in the cervical spine.
--- NOTE | 2021-11-28 00:16 | CT ---
EXAMINATION TYPE: CT facial bones wo con DATE OF EXAM: 11/28/2021 COMPARISON: None HISTORY: Swelling to right cheek from fall CT DLP: 1171.9 mGycm Automated exposure control for dose reduction was used. Images obtained from the bottom of the mandible to the top of the frontal sinuses with no contrast. The mandibular ring is intact. The temporomandibular joints are intact. Zygomatic arches are intact. Nasal bone is intact. There is some mucosal thickening in the maxillary sinuses and more on the left side with mucous retention cyst. The maxilla is intact. No evidence of orbital blowout fracture. The orbital margins are intact. No retro-orbital mass. There is hematoma anterior to the right zygoma that measures up to 12 mm in thickness. Hematoma exten ds inferiorly to the maxilla. No soft tissue air. IMPRESSION: No evidence of facial bone fracture. Large anterior right-sided facial hematoma involving the subcutaneous tissues at the zygoma and maxil la.
--- NOTE | 2021-11-28 00:17 | XR ---
EXAMINATION TYPE: XR pelvis AP view DATE OF EXAM: 11/27/2021 COMPARISON: NONE HISTORY: Fall. Pain TECHNIQUE: 2 views supine FINDINGS: Pelvic ring is intact. Proximal femurs and hip joints are intact. Sacroiliac joints are int act. IMPRESSION: Negative exam. No pelvic fracture.
[2021-11-28 00:37] LABS: Alcohol 426 mg/dL
[2021-11-28 01:27] LABS: Amphetamine Screen,Urine Not Detected (NotDetected); Barbiturate Screen,Urine Not Detected (NotDetected); Benzodiazepines Screen,Urine Not Detected (NotDetected); Cocaine Screen,Urine Not Detected (NotDetected); Methadone Screen, Urine Not Detected (NotDetected); Opiate Screen,Urine Detected (NotDetected); Oxycodone Screen, Urine Not Detected (NotDetected); Phencyclidine Screen,Urine Not Detected (NotDetected); Tricyclic Antidepressant,Urine Not Detected (NotDetected); Urn Cannabinoid Scrn Detected (NotDetected)
== END 2021-11-28 03:53 | disposition home or self-care (01) ==
LOC: EC 23:23
DX: S00.83XA Contusion of other part of head, initial encounter (principal); F10.129 Alcohol abuse with intoxication, unspecified; F12.90 Cannabis use, unspecified, uncomplicated; F11.90 Opioid use, unspecified, uncomplicated; F17.200 Nicotine dependence, unspecified, uncomplicated; Z23 Encounter for immunization; W19.XXXA Unspecified fall, initial encounter; Y90.8 Blood alcohol level of 240 mg/100 ml or more; Y92.410 Unspecified street and highway as the place of occurrence of the external cause
CPT/HCPCS: 36415; 80053; 83735; 85025; 80306; 80320; 72170; 72125; 70486; 70450; 90715; 99284; 96374; 90471; J3411

== ENCOUNTER 2021-12-01 09:41 | Inpatient (IN) | payer OTHER ==
[2021-12-01] MEDS ORDERED: LORazepam 2 MG/ML INJ IM STA (09:49)
[2021-12-01] MEDS ORDERED: SODIUM CHLORIDE 0.9% 1,000 ML IV ONE ×2 (09:54→13:24)
[2021-12-01] MEDS ORDERED: SODIUM CHLORIDE 0.9% 500 ML 500 ML IV ONE (09:54)
[2021-12-01 10:09] LABS: Basophils # (A) 0.1 k/uL (0-0.2); Basophils % (A) 1 %; Eosinophils # (A) 0.3 k/uL (0-0.7); Eosinophils % (A) 3 %; HCT 44.8 % (39.0-53.0); HGB 14.7 gm/dL (13.0-17.5); Lymphocytes # (A) 2.1 k/uL (1.0-4.8); Lymphocytes % (A) 19 %; MCH 33.7 pg (25.0-35.0); MCHC 32.9 g/dL (31.0-37.0); MCV 102.6 fL (80.0-100.0); Macrocytosis Slight; Mean Platelet Volume 8.2; Monocytes # (A) 0.9 k/uL (0-1.0); Monocytes % (A) 8 %; Neutrophils # (A) 7.5 k/uL (1.3-7.7); Neutrophils % (A) 68 %; Platelet Count 224 k/uL (150-450); RBC 4.36 m/uL (4.30-5.90); RDW 12.4 % (11.5-15.5)
[2021-12-01 10:13] LABS: Glucose,Whole Blood 169 mg/dL (70-110)
[2021-12-01 10:20] LABS: ALT 25 U/L (4-49); AST 37 U/L (17-59); African American GFR (CKD) >90 (>60 ml/min/1.73 sqM); Albumin 4.7 g/dL (3.5-5.0); Alcohol <10 mg/dL; Alkaline Phosphatase 76 U/L (38-126); Anion Gap 16 mmol/L; Blood Urea Nitrogen 12 mg/dL (9-20); Calcium 9.4 mg/dL (8.4-10.2); Carbon Dioxide 21 mmol/L (22-30); Chloride 104 mmol/L (98-107); Glucose 161 mg/dL (74-99); Magnesium 1.4 mg/dL (1.6-2.3); Non-African American GFR(CKD) >90 (>60 ml/min/1.73 sqM); Potassium 3.9 mmol/L (3.5-5.1); Sodium 141 mmol/L (137-145); Total Bilirubin 0.4 mg/dL (0.2-1.3); Total Protein 7.3 g/dL (6.3-8.2)
--- NOTE | 2021-12-01 10:32 | ED ---
General Adult HPI - General Chief complaint: Seizure Stated complaint: Seizure Time Seen by Provider: 12/01/21 09:41 Source: EMS, RN notes reviewed, old records reviewed Mode of arrival: EMS Limitations: altered mental status - History of Present Illness Initial comments: This is a 36-year-old male who presents emergency Department with a past medical history known for drinking. Patient supposedly had tried to stop drinking on his own and he has had 2 seizures prior to arrival. Patient again seized in the emergency department. Patient's last drink was last night he states he had a couple beers. This history was given TMS he was not able to give us any history at this time. No other history can be obtained at this time - Related Data Home Medications Medication Instructions Recorded Confirmed No Known Home Medications 01/26/21 01/26/21 Allergies Allergy/AdvReac Type Severity Reaction Status Date / Time No Known Allergies Allergy Verified 12/01/21 10:54 Review of Systems ROS Statement: Those systems with pertinent positive or pertinent negative responses have been documented in the HPI. ROS Other: All systems not noted in ROS Statement are negative. Past Medical History Past Medical History: No Reported History History of Any Multi-Drug Resistant Organisms: None Reported Past Surgical History: Appendectomy Past Psychological History: Anxiety, Depression Smoking Status: Current every day smoker Past Alcohol Use History: Daily, Heavy Past Drug Use History: Marijuana General Exam - General Exam Comments Initial Comments: GENERAL: Patient is well-developed and well-nourished. Patient is actively seizing ENT: Neck is soft and supple. No significant lymphadenopathy is noted. Oropharynx is clear. Moist mucous membranes. Neck has full range of motion without eliciting any pain. Patient has some conjunctival hemorrhage in the right eye and he has bruising under the right eye and swelling on the right side of his face. EYES: The sclera were anicteric and conjunctiva were pink and moist. Extraocular movements were intact and pupils were equal round and reactive to light. Eyelids were unremarkable. PULMONARY: Unlabored respirations. Good breath sounds bilaterally. No audible rales rhonchi or wheezing was noted. CARDIOVASCULAR: Patient is tachycardic at about 105 beats a minute ABDOMEN: Soft and nontender with normal bowel sounds. SKIN: Skin is clear with no lesions or rashes and otherwise unremarkable. NEUROLOGIC: Patient is actively seizing MUSCULOSKELETAL: Normal extremities with adequate strength and full range of motion. No lower extremity swelling or edema. No calf tenderness. PSYCHIATRIC: Unable to assess Limitations: altered mental status Course Vital Signs 12/01/21 12/01/21 12/01/21 09:45 10:28 10:30 Pulse Rate 98 115 H Respiratory 22 16 20 Rate Blood Pressure 149/98 143/86 128/81 O2 Sat by Pulse 97 93 L 94 L Oximetry 12/01/21 11:00 Pulse Rate 78 Respiratory 16 Rate Blood Pressure 128/81 O2 Sat by Pulse 96 Oximetry Medical Decision Making - Medical Decision Making EKG shows sinus rhythm at 95 bpm W[place] interval 145 QRS is under QT interval 367 QTC is 420. Patient's EKG shows LVH. Patient's lactic acid was elevated secondary to the fact that he had multiple seizures. I was sounds physicians and he agreed to admit the patient admitted the patient wrote admitting orders - Lab Data Result diagrams: 12/01/21 09:59 12/01/21 09:59 Lab Results 12/01/21 12/01/21 12/01/21 Range/Units 09:52 09:59 09:59 WBC 11.0 H (3.8-10.6) k/uL RBC 4.36 (4.30-5.90) m/uL Hgb 14.7 (13.0-17.5) gm/dL Hct 44.8 (39.0-53.0) % MCV 102.6 H (80.0-100.0) fL MCH 33.7 (25.0-35.0) pg MCHC 32.9 (31.0-37.0) g/dL RDW 12.4 (11.5-15.5) % Plt Count 224 (150-450) k/uL MPV 8.2 Neutrophils % 68 % Lymphocytes % 19 % Monocytes % 8 % Eosinophils % 3 % Basophils % 1 % Neutrophils # 7.5 (1.3-7.7) k/uL Lymphocytes # 2.1 (1.0-4.8) k/uL Monocytes # 0.9 (0-1.0) k/uL Eosinophils # 0.3 (0-0.7) k/uL Basophils # 0.1 (0-0.2) k/uL Macrocytosis Slight Sodium 141 (137-145) mmol/L Potassium 3.9 (3.5-5.1) mmol/L Chloride 104 (98-107) mmol/L Carbon Dioxide 21 L (22-30) mmol/L Anion Gap 16 mmol/L BUN 12 (9-20) mg/dL Creatinine 0.52 L (0.66-1.25) mg/dL Est GFR (CKD-EPI)AfAm >90 (>60 ml/min/1.73 sqM) Est GFR (CKD-EPI)NonAf >90 (>60 ml/min/1.73 sqM) Glucose 161 H (74-99) mg/dL POC Glucose (mg/dL) 169 H (70-110) mg/dL POC Glu Financial Economist ID Myriam Hurd Lactic Ac Sepsis Rflx Plasma Lactic Acid Yared (0.7-2.0) mmol/L Calcium 9.4 (8.4-10.2) mg/dL Magnesium 1.4 L (1.6-2.3) mg/dL Total Bilirubin 0.4 (0.2-1.3) mg/dL AST 37 (17-59) U/L ALT 25 (4-49) U/L Alkaline Phosphatase 76 (38-126) U/L Total Protein 7.3 (6.3-8.2) g/dL Albumin 4.7 (3.5-5.0) g/dL Serum Alcohol <10 mg/dL 12/01/21 12/01/21 Range/Units 09:59 10:29 WBC (3.8-10.6) k/uL RBC (4.30-5.90) m/uL Hgb (13.0-17.5) gm/dL Hct (39.0-53.0) % MCV (80.0-100.0) fL MCH (25.0-35.0) pg MCHC (31.0-37.0) g/dL RDW (11.5-15.5) % Plt Count (150-450) k/uL MPV Neutrophils % % Lymphocytes % % Monocytes % % Eosinophils % % Basophils % % Neutrophils # (1.3-7.7) k/uL Lymphocytes # (1.0-4.8) k/uL Monocytes # (0-1.0) k/uL Eosinophils # (0-0.7) k/uL Basophils # (0-0.2) k/uL Macrocytosis Sodium (137-145) mmol/L Potassium (3.5-5.1) mmol/L Chloride (98-107) mmol/L Carbon Dioxide (22-30) mmol/L Anion Gap mmol/L BUN (9-20) mg/dL Creatinine (0.66-1.25) mg/dL Est GFR (CKD-EPI)AfAm (>60 ml/min/1.73 sqM) Est GFR (CKD-EPI)NonAf (>60 ml/min/1.73 sqM) Glucose (74-99) mg/dL POC Glucose (mg/dL) (70-110) mg/dL POC Glu Financial Economist ID Lactic Ac Sepsis Rflx Y Plasma Lactic Acid Yared 4.6 H* (0.7-2.0) mmol/L Calcium (8.4-10.2) mg/dL Magnesium (1.6-2.3) mg/dL Total Bilirubin (0.2-1.3) mg/dL AST (17-59) U/L ALT (4-49) U/L Alkaline Phosphatase (38-126) U/L Total Protein (6.3-8.2) g/dL Albumin (3.5-5.0) g/dL Serum Alcohol mg/dL Disposition Clinical Impression: Alcohol withdrawal seizure Disposition: ADMITTED IP TO THIS HOSP Referrals: None,Stated [Primary Care Provider] - 1-2 days Time of Disposition: 13:23
--- NOTE | 2021-12-01 11:20 | CT ---
EXAMINATION TYPE: CT brain derickine wo con DATE OF EXAM: 12/01/2021 COMPARISON: 11/27/2021 HISTORY: 36-year-old male Seizure, Fall CT DLP: 1186.2 mGycm Automated exposure control for dose reduction was used. Technique: Examination of the head was done in axial plane without intravenous contrast. Coronal and sagittal reconstructions performed. CT of the cervical spine was obtained in axial plane without intravenous injection of contrast mater ial. Coronal and sagittal reformatted images were obtained from the axial views for evaluation of f ractures, spinal alignment and canal. FINDINGS: Head: There is no evidence of acute intracranial hemorrhage, acute ischemic changes, mass, mass-effect, or extra-axial fluid collection. There is no effacement of cerebral sulci or basal subarachnoid cister ns. There is no hydrocephalus. There is no midline shift. Gilbert-white matter distinction is preserv ed. Facial bones reported separately. Mastoid air cells well pneumatized. 2.0 cm polyp or mucosal retenti on cyst right sphenoid sinus. No calvarial fracture Cervical spine: Dextroconvex curvature centered along the lower cervical spine. No cranial cervical junction, predent al space widening, or prevertebral soft tissue swelling. Mild degenerative change at the C1 dens tiffany culation. Mild degenerative disc disease C5-C6. Disc osteophyte complex may contribute to mild narrow ing of the spinal canal. No acute fracture or malalignment. Mild vertebral joint arthropathy at C5-C6. Minimal emphysematous change in the upper lungs. Sagittal and coronal reformatted images confirm above findings. COMBINED IMPRESSION: 1. No acute intracranial abnormality seen. Facial bones reported separately. 2. No acute fracture or malalignment of the cervical spine. Mild degenerative change C5-C6. 3. Minimal emphysematous change in the upper lungs. Query smoking history.
--- NOTE | 2021-12-01 11:23 | CT ---
EXAMINATION TYPE: CT facial bones wo con DATE OF EXAM: 12/01/2021 COMPARISON: 11/27/2021 HISTORY: 36-year-old male with pain after Seizure, Fall TECHNIQUE: Contiguous axial scanning of the facial bones without IV contrast. Coronal reconstructions performed. CT DLP: included with Brain of 809.3 mGycm Automated exposure control for dose reduction was used. FINDINGS: 1.8 cm mucosal retention cyst floor of the left maxillary sinus. Mucosal thickening floor of the righ t maxillary sinus. Scattered dental caries within the maxillary teeth. Leftward nasal septal deviation. The mandible, TMJ's, pterygoid plates, zygomatic arches, and orbits and globes are intact. There is r ight periorbital and premaxillary soft tissue swelling. Additionally, there is a focal 3.2 x 2.7 x 1. 6 cm right premaxillary soft tissue hematoma. Nasal bone and maxillary spines are intact. IMPRESSION: NO ACUTE FACIAL BONE FRACTURE SEEN. THE SIZE OF THE RIGHT PREMAXILLARY SOFT TISSUE HEMATOMA AT 3.2 CM IS SMALLER COMPARED TO 4.4 CM, PREVIOUSLY. THERE IS DECREASING, RESIDUAL SOFT TISSUE SWELLING ALONG THE RIGHT SIDE OF THE FACE FROM THAT TIME.
[2021-12-01] MEDS ORDERED: chlordiazePOXIDE 25 MG CAP PO PRN ×4 (13:24)
[2021-12-01 16:34] VITALS: BP 120/67; PULSE 78; RESP 21
--- NOTE | 2021-12-01 18:13 | P.HPIM ---
History of Present Illness H&P Date: 12/01/21 Chief Complaint: Alcohol withdrawal seizure 36-year-old man with a medical history of alcohol abuse disorder who presented with alcohol withdrawal seizures. Patient tells me that he's been drinking a pint to a fifth a day for more than 10 years, but his girlfriend told him he needs to titrate down, so in the last few days he's only been drinking 2 beers per day for the last 3 days. Patient says that he had a seizure at home and his girlfriend insisted that he come to the emergency room for further evaluation. He denies fevers, chills, nausea, vomiting, chest pain, palpitations, syncope, presyncope, cough, dyspnea, abdominal pain, constipation, diarrhea, dysuria, d yschezia, numbness/weakness. While in the emergency room he had another seizure prompting request for admission for observation. Patient was afebrile, 109/59, heart rate 80, 96% room air. CBC was remarkable for mild leukocytosis to 11.0 and elevated MCV to 102.6. Chemistries are remarkable for mild acidosis to a bicarb of 21, otherwise unremarkable. Magnesium was low at 1.4. Liver function tests were unremarkable. Initial lactate acid was 4.6. Serum EtOH was less than 10. Patient underwent CT head/C-spine which showed no acute intracranial abnormalities and no fractures of the cervical spine. He also had a face CT which showed no acute facial bone fracture and showed that he had an improving hematoma compared to prior image done 4 days ago. EKG shows normal sinus rhythm with was a trench area consistent with LVH. All Systems reviewed and pertinent positives and negatives noted in HPI, all other symptoms are negative Gen: in no apparent distress, resting comfortably in bed Eyes: PERRL, no scleral injection or icterus HENT: normocephalic, atraumatic, good hearing acuity, moist mucous membranes Neck: no tracheal deviation, full range of motion Resp: good air exchange, breathing comfortably with no accessory muscle use, no tactile fremitus, clear to auscultation bilaterally CVS: good distal perfusion x 4, no pitting edema, regular rate and rhythm GI: soft, no tenderness to palpation, periumbilical area, ND, no hepatosplenomegaly : no suprapubic tenderness, no CVAT, marley catheter not present MSK: no clubbing, no cyanosis, no noted contractures of extremities Skin: no noted rashes, petechiae; temperature of skin is appropriate Neuro: moving all extremities without signs of weakness, CN II-XII intact Psych: cooperative, euthymic mood, insight and judgment intact Labs and imaging reviewed as above Assessment/plan: Alcohol withdrawal syndrome with seizure Alcohol dependence -Admit to inpatient, telemetry -Thiamine, folate, multivitamin -CIWA protocol -Ativan as needed -Seizure precautions -EtOH cessation, social work to provide resources Patient is full code Past Medical History Past Medical History: No Reported History History of Any Multi-Drug Resistant Organisms: None Reported Past Surgical History: Appendectomy Past Psychological History: Anxiety, Depression Smoking Status: Current every day smoker Past Alcohol Use History: Daily, Heavy Past Drug Use History: Marijuana Medications and Allergies Home Medications Medication Instructions Recorded Confirmed Type No Known Home Medications 01/26/21 12/01/21 History Allergies Allergy/AdvReac Type Severity Reaction Status Date / Time No Known Allergies Allergy Verified 12/01/21 13:41 Physical Exam Osteopathic Statement: *. No significant issues noted on an osteopathic str uctural exam other than those noted in the History and Physical/Consult. Vitals: Vital Signs Pulse Resp BP Pulse Ox 12/01/21 16:00 78 21 120/67 96 12/01/21 15:00 53 L 14 115/74 12/01/21 14:00 55 L 14 125/74 12/01/21 13:00 55 L 14 120/70 12/01/21 12:00 80 18 109/59 12/01/21 11:00 78 16 128/81 96 12/01/21 10:30 115 H 20 128/81 94 L 12/01/21 10:28 98 16 143/86 93 L 12/01/21 09:45 22 149/98 97 Intake and Output 12/01/21 12/01/21 12/01/21 06:59 14:59 22:59 Other: Weight 77.111 kg Results CBC & Chem 7: 12/01/21 09:59 12/01/21 09:59 Labs: Abnormal Lab Results - Last 24 Hours (Table) 12/01/21 12/01/21 12/01/21 Range/Units 09:52 09:59 09:59 WBC 11.0 H (3.8-10.6) k/uL MCV 102.6 H (80.0-100.0) fL Carbon Dioxide 21 L (22-30) mmol/L Creatinine 0.52 L (0.66-1.25) mg/dL Glucose 161 H (74-99) mg/dL POC Glucose (mg/dL) 169 H (70-110) mg/dL Plasma Lactic Acid Yared (0.7-2.0) mmol/L Magnesium 1.4 L (1.6-2.3) mg/dL 12/01/21 Range/Units 09:59 WBC (3.8-10.6) k/uL MCV (80.0-100.0) fL Carbon Dioxide (22-30) mmol/L Creatinine (0.66-1.25) mg/dL Glucose (74-99) mg/dL POC Glucose (mg/dL) (70-110) mg/dL Plasma Lactic Acid Yared 4.6 H* (0.7-2.0) mmol/L Magnesium (1.6-2.3) mg/dL
--- NOTE | 2021-12-01 18:15 | P.DS ---
Providers Date of admission: 12/01/21 13:24 Expected date of discharge: 12/01/21 Attending physician: Aida Shelton MD Primary care physician: Stated None Hospital Course: Alcohol withdrawal syndrome with seizure Alcohol dependence 36-year-old man with a medical history of alcohol abuse disorder who presented with alcohol withdrawal seizures. Patient was afebrile, 109/59, heart rate 80, 96% room air. CBC was remarkable for mild leukocytosis to 11.0 and elevated MCV to 102.6. Chemistries are remarkable for mild acidosis to a bicarb of 21, otherwise unremarkable. Magnesium was low at 1.4. Liver function tests were unremarkable. Initial lactate acid was 4.6. Serum EtOH was less than 10. Patient underwent CT head/C-spine which showed no acute intracranial abnormalities and no fractures of the cervical spine. He also had a face CT which showed no acute facial bone fracture and showed that he had an improving hematoma compared to prior image done 4 days ago. EKG shows normal sinus rhythm with was a trench area consistent with LVH. He was given multiple doses of Valium, IV fluids. When he was notified that he had received a bed upstairs on [address] patient left AGAINST MEDICAL ADVICE. Patient left AGAINST MEDICAL ADVICE, see same day history and physical for more details about admission Patient Condition at Discharge: Undetermined Plan - Discharge Summary New Discharge Prescriptions: No Action No Known Home Medications Discharge Medication List No Known Home Medications 01/26/21 [History] Follow up Appointment(s)/Referral(s): None,Stated [Primary Care Provider] - 1-2 days Discharge Disposition: Left Against Medical Advice
== END 2021-12-01 17:22 | disposition left against medical advice (07) | DRG 101 ==
LOC: EC 09:41 → 3SCARD 13:24
PROVIDERS: ADMIT Internal Medicine; ATTEND Internal Medicine
PROC: HZ2ZZZZ Detoxification Services for Substance Abuse Treatment (ICD-10-PCS; principal; 2021-12-01)
DX: R56.9 Unspecified convulsions (principal); E87.2 Acidosis; F10.239 Alcohol dependence with withdrawal, unspecified; Z53.29 Procedure and treatment not carried out because of patient's decision for other reasons; R00.0 Tachycardia, unspecified; D72.829 Elevated white blood cell count, unspecified; F17.210 Nicotine dependence, cigarettes, uncomplicated; F32.A Depression, unspecified; F41.9 Anxiety disorder, unspecified
CPT/HCPCS: 36415; 70450; 70486; 72125; 80053; 80320; 83605; 83735; 85025; 93005; 96361; 96372; 96374; 99285

== ENCOUNTER 2021-12-26 07:46 | Inpatient (IN) | payer OTHER ==
[2021-12-26] MEDS ORDERED: SODIUM CHLORIDE 0.9% 1,000 ML IV STA (07:49)
[2021-12-26] MEDS ORDERED: THIAMINE 100 MG/ML 2 ML VIAL IM STA (07:50)
[2021-12-26] MEDS ORDERED: LORazepam 2 MG/ML INJ IV PRN ×3 (07:50)
--- NOTE | 2021-12-26 07:58 | ED ---
General Adult HPI - General Stated complaint: seizure Time Seen by Provider: 12/26/21 07:49 Source: EMS, RN notes reviewed, old records reviewed Limitations: altered mental status - History of Present Illness Initial comments: 36-year-old male presenting with seizure at home. According to paramedics he had several seizures unknown duration. He was initially combative and postictal. He returned to his normal state of mentation and did admit that he had been admitted recently and had issue with alcohol withdrawal seizures. Patient began seizing upon arrival to the emergency department. Initial history was limited. - Related Data Home Medications Medication Instructions Recorded Confirmed No Known Home Medications 01/26/21 12/01/21 Allergies Allergy/AdvReac Type Severity Reaction Status Date / Time No Known Allergies Allergy Verified 12/01/21 13:41 Review of Systems ROS Statement: Those systems with pertinent positive or pertinent negative responses have been documented in the HPI. ROS Other: All systems not noted in ROS Statement are negative. Past Medical History Past Medical History: No Reported History History of Any Multi-Drug Resistant Organisms: None Reported Past Surgical History: Appendectomy Past Psychological History: Anxiety, Depression Smoking Status: Current every day smoker Past Alcohol Use History: Daily, Heavy Past Drug Use History: Marijuana General Exam General appearance: obtunded, in distress (Tonic-clonic seizure) Head exam: Present: atraumatic, normocephalic Eye exam: Present: other (Rightward gaze) Neck exam: Present: normal inspection. Absent: tenderness, meningismus Respiratory exam: Present: normal lung sounds bilaterally. Absent: respiratory distress, wheezes Cardiovascular Exam: Present: normal rhythm, tachycardia GI/Abdominal exam: Present: soft. Absent: distended, tenderness, guarding Neurological exam: Present: other (Full tonic-clonic seizure) Skin exam: Present: warm, dry, intact. Absent: cyanosis Course Vital Signs 12/26/21 12/26/21 08:13 09:16 Temperature 99.6 F Pulse Rate 90 82 Respiratory 20 18 Rate Blood Pressure 172/85 148/80 O2 Sat by Pulse 98 96 Oximetry EKG Findings - EKG Comments: EKG Findings:: EKG: Sinus rhythm rate of 92, LVH OH interval 140, QRS duration 96, QTC 395 Medical Decision Making - Medical Decision Making 36-year-old male presenting with seizure, suspect alcohol withdrawal seizure. Patient has required several doses of Ativan to suppress seizure activity while in the emergency department. I did perform CT imaging of the brain which is negative for anything acute, full interpretation is pending radiology is full read. Laboratory testing reveals leukocytosis likely secondary to seizure. He has a CO2 of 17, normal electrolytes otherwise. Patient will be monitored on seizure precautions. CIWA, for withdrawal. Case discussed with Dr. Augustine who will admit - Lab Data Result diagrams: 12/26/21 08:33 12/26/21 08:33 Lab Results 12/26/21 12/26/21 12/26/21 Range/Units 08:33 08:33 08:33 WBC 18.7 H (3.8-10.6) k/uL RBC 4.76 (4.30-5.90) m/uL Hgb 15.9 (13.0-17.5) gm/dL Hct 48.0 (39.0-53.0) % MCV 100.7 H (80.0-100.0) fL MCH 33.3 (25.0-35.0) pg MCHC 33.1 (31.0-37.0) g/dL RDW 11.8 (11.5-15.5) % Plt Count 255 (150-450) k/uL MPV 8.3 Neutrophils % 88 % Lymphocytes % 6 % Monocytes % 5 % Eosinophils % 0 % Basophils % 0 % Neutrophils # 16.4 H (1.3-7.7) k/uL Lymphocytes # 1.1 (1.0-4.8) k/uL Monocytes # 1.0 (0-1.0) k/uL Eosinophils # 0.1 (0-0.7) k/uL Basophils # 0.1 (0-0.2) k/uL Sodium 141 (137-145) mmol/L Potassium 3.7 (3.5-5.1) mmol/L Chloride 103 (98-107) mmol/L Carbon Dioxide 17 L (22-30) mmol/L Anion Gap 21 mmol/L BUN 10 (9-20) mg/dL Creatinine 0.88 (0.66-1.25) mg/dL Est GFR (CKD-EPI)AfAm >90 (>60 ml/min/1.73 sqM) Est GFR (CKD-EPI)NonAf >90 (>60 ml/min/1.73 sqM) Glucose 189 H (74-99) mg/dL Calcium 10.1 (8.4-10.2) mg/dL Magnesium 1.9 (1.6-2.3) mg/dL Total Bilirubin 0.7 (0.2-1.3) mg/dL AST 35 (17-59) U/L ALT 26 (4-49) U/L Alkaline Phosphatase 71 (38-126) U/L Total Protein 8.0 (6.3-8.2) g/dL Albumin 5.1 H (3.5-5.0) g/dL Urine Color Yellow Urine Appearance Cloudy (Clear) Urine pH 5.5 (5.0-8.0) Ur Specific [place] 1.015 (1.001-1.035) Urine Protein 3+ H (Negative) Urine Glucose (UA) 4+ H (Negative) Urine Ketones 1+ H (Negative) Urine Blood Small H (Negative) Urine Nitrite Negative (Negative) Urine Bilirubin Negative (Negative) Urine Urobilinogen <2.0 (<2.0) mg/dL Ur Leukocyte Esterase Negative (Negative) Urine RBC 3 (0-5) /hpf Urine WBC 3 (0-5) /hpf Ur Squamous Epith Cells <1 (0-4) /hpf Hyaline Casts 18 H (0-2) /lpf Urine Mucus Few H (None) /hpf Salicylates <1.0 mg/dL Urine Opiates Screen Detected H (NotDetected) Ur Oxycodone Screen Not Detected (NotDetected) Urine Methadone Screen Not Detected (NotDetected) Ur Propoxyphene Screen Not Detected (NotDetected) Acetaminophen <10.0 ug/mL Ur Barbiturates Screen Not Detected (NotDetected) U Tricyclic Antidepress Not Detected (NotDetected) Ur Phencyclidine Scrn Not Detected (NotDetected) Ur Amphetamines Screen Not Detected (NotDetected) U Methamphetamines Scrn Not Detected (NotDetected) U Benzodiazepines Scrn Not Detected (NotDetected) Urine Cocaine Screen Not Detected (NotDetected) U Marijuana (THC) Screen Detected H (NotDetected) Serum Alcohol <10 mg/dL Critical Care Time Critical Care Time: Yes Total Critical Care Time: 35 Disposition Clinical Impression: Alcohol withdrawal seizure, Generalized seizure Disposition: ADMITTED IP TO THIS [facility] Condition: Stable Instructions (If sedation given, give patient instructions): Seizure/Epilepsy Discharge Instructions & Follow-Up Is patient prescribed a controlled substance at d/c from ED?: No Referrals: None,Stated [Primary Care Provider] - 1-2 days Time of Disposition: 11:24
[2021-12-26] MEDS ORDERED: LORazepam 2 MG/ML INJ IV STA ×8 (07:59→10:46)
[2021-12-26 09:09] LABS: Appearance,Urine Cloudy (Clear); Bilirubin,Urine Negative (Negative); Blood,Urine Small (Negative); Color,Urine Yellow; Glucose,Urine (UA) 4+ (Negative); Hyaline Casts,Urine 18 /lpf (0-2); Ketones,Urine 1+ (Negative); Leukocyte Esterase,Urine Negative (Negative); Mucus,Urine Few /hpf; Nitrite,Urine Negative (Negative); PH, Urine 5.5 (5.0-8.0); Protein,Urine 3+ (Negative); RBC,Urine 3 /hpf (0-5); Specific Gravity,Urine 1.015 (1.001-1.035); Squamous Epithelial Cell,Urine <1 /hpf (0-4); Urobilinogen,Urine <2.0 mg/dL (<2.0); WBC,Urine 3 /hpf (0-5)
[2021-12-26 09:12] LABS: Amphetamine Screen,Urine Not Detected (NotDetected); Barbiturate Screen,Urine Not Detected (NotDetected); Benzodiazepines Screen,Urine Not Detected (NotDetected); Cocaine Screen,Urine Not Detected (NotDetected); Methadone Screen, Urine Not Detected (NotDetected); Opiate Screen,Urine Detected (NotDetected); Oxycodone Screen, Urine Not Detected (NotDetected); Phencyclidine Screen,Urine Not Detected (NotDetected); Tricyclic Antidepressant,Urine Not Detected (NotDetected); Urn Cannabinoid Scrn Detected (NotDetected)
[2021-12-26 09:43] LABS: Basophils # (A) 0.1 k/uL (0-0.2); Basophils % (A) 0 %; Eosinophils # (A) 0.1 k/uL (0-0.7); Eosinophils % (A) 0 %; HGB 15.9 gm/dL (13.0-17.5); Lymphocytes # (A) 1.1 k/uL (1.0-4.8); Lymphocytes % (A) 6 %; MCH 33.3 pg (25.0-35.0); MCHC 33.1 g/dL (31.0-37.0); MCV 100.7 fL (80.0-100.0); Mean Platelet Volume 8.3; Monocytes % (A) 5 %; Neutrophils # (A) 16.4 k/uL (1.3-7.7); Neutrophils % (A) 88 %; Platelet Count 255 k/uL (150-450); RBC 4.76 m/uL (4.30-5.90); RDW 11.8 % (11.5-15.5); WBC 18.7 k/uL (3.8-10.6)
[2021-12-26 09:56] LABS: AST 35 U/L (17-59); Acetaminophen <10.0 ug/mL; African American GFR (CKD) >90 (>60 ml/min/1.73 sqM); Albumin 5.1 g/dL (3.5-5.0); Alcohol <10 mg/dL; Alkaline Phosphatase 71 U/L (38-126); Anion Gap 21 mmol/L; Blood Urea Nitrogen 10 mg/dL (9-20); Calcium 10.1 mg/dL (8.4-10.2); Carbon Dioxide 17 mmol/L (22-30); Chloride 103 mmol/L (98-107); Glucose 189 mg/dL (74-99); Magnesium 1.9 mg/dL (1.6-2.3); Non-African American GFR(CKD) >90 (>60 ml/min/1.73 sqM); Potassium 3.7 mmol/L (3.5-5.1); Salicylate <1.0 mg/dL; Sodium 141 mmol/L (137-145); Total Bilirubin 0.7 mg/dL (0.2-1.3)
[2021-12-26 10:22] LABS: ALT 26 U/L (4-49)
[2021-12-26] MEDS ORDERED: NALOXONE 0.4 MG/ML 1 ML VIAL IV PRN (11:21)
--- NOTE | 2021-12-26 13:44 | P.HPIM ---
History of Present Illness H&P Date: 12/26/21 Chief Complaint: Alcohol withdrawal seizure 36-year-old man with medical history of alcohol abuse disorder with dependence, nicotine abuse, marijuana abuse presented for alcohol withdrawal seizures. Patient was obtunded during my examination and history is taken from chart review. From my understanding, patient had a seizure at home was brought in for further management, upon arrival he had a second seizure. He reports having had alcohol withdrawal seizures in the past. Review of systems cannot be done due to patient's clinical condition. In the emergency room, patient was afebrile, 141/104, 98% on room air, heart rate 88. CBC has leukocytosis to 18.7 chemistries show bicarb of 17 with an anion gap of 21. Liver function tests are unremarkable. UA shows 3+ protein, 4+ glucose, 1+ ketones, 18 hyaline casts, urine mucus. Urine toxicology demonstrates positivity for opiates, marijuana. Serum EtOH was less than 10, Tylenol was less than 10, salicylates less than 1. EKG shows normal sinus rhythm with early repolarization changes as well as criteria for LVH. See HPI regarding review of systems Gen: Arousable to painful stimulus HEENT: normocephalic, atraumatic, good hearing acuity, moist mucous membranes Resp: good air exchange, breathing comfortably with no accessory muscle use CVS: good distal perfusion x 4, GI: soft, NTTP, ND : no SPT, no CVAT, marley catheter not present MSK: no pitting edema, no clubbing Neuro: non-focal, moving all extremities Labs and imaging reviewed as above Assessment/plan: Alcohol withdrawal syndrome Alcohol dependence, severe -Admit to inpatient, telemetry -[facility] protocol -Ativan when necessary -Thiamine, folate, multivitamin -Seizure precautions -Aspiration precautions -Repeat CBC, BMP, magnesium in the morning Nicotine abuse Marijuana abuse -Recommend cessation Patient is full code Past Medical History Past Medical History: No Reported History History of Any Multi-Drug Resistant Organisms: None Reported Past Surgical History: Appendectomy Past Psychological History: Anxiety, Depression Smoking Status: Current every day smoker Past Alcohol Use History: Daily, Heavy Past Drug Use History: Marijuana Medications and Allergies Home Medications Medication Instructions Recorded Confirmed Type No Known Home Medications 01/26/21 12/26/21 History Allergies Allergy/AdvReac Type Severity Reaction Status Date / Time No Known Allergies Allergy Verified 12/26/21 11:37 Physical Exam Osteopathic Statement: *. No significant issues noted on an osteopathic structural exam other than those noted in the History and Physical/Consult. Vitals: Vital Signs Temp Pulse Resp BP Pulse Ox 12/26/21 11:46 88 18 141/104 98 12/26/21 09:16 82 18 148/80 96 12/26/21 08:13 99.6 F 90 20 172/85 98 Intake and Output 12/25/21 12/26/21 12/26/21 22:59 06:59 14:59 Other: Weight 83.915 kg Results CBC & Chem 7: 12/26/21 08:33 12/26/21 08:33 Labs: Abnormal Lab Results - Last 24 Hours (Table) 12/26/21 12/26/21 12/26/21 Range/Units 08:33 08:33 08:33 WBC 18.7 H (3.8-10.6) k/uL MCV 100.7 H (80.0-100.0) fL Neutrophils # 16.4 H (1.3-7.7) k/uL Carbon Dioxide 17 L (22-30) mmol/L Glucose 189 H (74-99) mg/dL Albumin 5.1 H (3.5-5.0) g/dL Urine Protein 3+ H (Negative) Urine Glucose (UA) 4+ H (Negative) Urine Ketones 1+ H (Negative) Urine Blood Small H (Negative) Hyaline Casts 18 H (0-2) /lpf Urine Mucus Few H (None) /hpf Urine Opiates Screen Detected H (NotDetected) U Marijuana (THC) Screen Detected H (NotDetected)
[2021-12-26 20:22] LABS: Glucose,Whole Blood 112 mg/dL (70-110)
[2021-12-26] MEDS: SODIUM CHLORIDE 0.9% 1,000 ML IV SCH (21:03)
[2021-12-26] MEDS: THIAMINE 100 MG TAB PO SCH (21:05)
[2021-12-27] MEDS: SODIUM CHLORIDE 0.9% 1,000 ML IV SCH (02:08)
[2021-12-27] MEDS: THIAMINE 100 MG TAB PO SCH (06:39)
[2021-12-27 07:25] LABS: Basophils % (A) 0 %; Eosinophils # (A) 0.1 k/uL (0-0.7); Eosinophils % (A) 1 %; HCT 47.1 % (39.0-53.0); HGB 15.8 gm/dL (13.0-17.5); Lymphocytes # (A) 2.1 k/uL (1.0-4.8); Lymphocytes % (A) 12 %; MCH 34.3 pg (25.0-35.0); MCHC 33.5 g/dL (31.0-37.0); MCV 102.4 fL (80.0-100.0); Monocytes # (A) 1.6 k/uL (0-1.0); Monocytes % (A) 9 %; Neutrophils # (A) 13.9 k/uL (1.3-7.7); Neutrophils % (A) 77 %; Platelet Count 249 k/uL (150-450); RDW 12.3 % (11.5-15.5)
[2021-12-27 07:57] LABS: Calcium 9.9 mg/dL (8.4-10.2); Magnesium 1.9 mg/dL (1.6-2.3); Potassium 3.8 mmol/L (3.5-5.1)
--- NOTE | 2021-12-27 08:54 | P.CNNES ---
History of Present Illness Consult date: 12/26/21 Requesting physician: Alejo Rodriguez Reason for Consult: Seizure History of Present Illness: Patient is a 36-year-old male came to the hospital by ambulance today at 7:46 AM. EMS flow sheet not available in the chart. Patient came to the hospital because of seizure. He states he had a seizure couple weeks ago as well. This is his second seizure. His last drink was a few days ago. He denies any head injury. He denies taking any medications. Apparently patient was evaluated in the ER on 11/27/2021 for a fall with facial contusion and was noted to be intoxicated with blood alcohol level 426. He then presented to the ER on 12/01/2021 with a seizure. He had 2 seizures prior to arrival. He now came with another seizure. According to paramedics, he had several seizures, unknown duration. When he arrived to the ER he was initially combative and postictal. Patient began seizing in the ER. Patient has received Ativan for possible alcohol withdrawal. Vital signs that pressure 172/85, pulse rate 90, temperature 99.6 rectally. Blood test shows WBC 18.7 hemoglobin 15.9, elevated MCV 100.7 and platelets 255. Chem-20 is normal. UA shows small amount of blood. No signs of infection. Urine drug screen positive for opiates and marijuana. Blood alcohol level <10. CT head was completed which on my review revealed no acute process. Normal parenchyma. Official radiology report still pending because of technical issues with the [employer]. Patient states that he drinks 1 pint of vodka per day for the last couple years. He also smokes one pack per day for last 5-10 years. He smokes marijuana. He used to work at [employer], but he has been laid off. At present he is unemployed. Review of Systems Constitutional: Denies chills, Denies fever Eyes: denies blurred vision, denies pain Ears, nose, mouth and throat: Denies headache, Denies sore throat Cardiovascular: Denies chest pain, Denies shortness of breath Respiratory: Denies cough Gastrointestinal: Denies abdominal pain, Denies diarrhea, Denies nausea, Denies vomiting Musculoskeletal: Denies myalgias Integumentary: Denies pruritus, Denies rash Neurological: Reports as per HPI Past Medical History Past Medical History: No Reported History History of Any Multi-Drug Resistant Organisms: None Reported Past Surgical History: Appendectomy Past Psychological History: Anxiety, Depression Smoking Status: Current every day smoker Past Alcohol Use History: Daily, Heavy Past Drug Use History: Marijuana Medications and Allergies Home Medications Medication Instructions Recorded Confirmed Type No Known Home Medications 01/26/21 12/26/21 History Allergies Allergy/AdvReac Type Severity Reaction Status Date / Time No Known Allergies Allergy Verified 12/26/21 11:37 Physical Examination - Vital Signs Vital Signs: Vital Signs Temp Pulse Resp BP Pulse Ox 12/26/21 15:14 135/84 12/26/21 13:58 97 18 151/108 98 12/26/21 11:46 88 18 141/104 98 12/26/21 09:16 82 18 148/80 96 12/26/21 08:13 99.6 F 90 20 172/85 98 Intake and Output 12/26/21 12/26/21 12/26/21 06:59 14:59 22:59 Other: Weight 83.915 kg Patient is a young male, in no acute distress. Patient is slightly somnolent, mildly encephalopathic, but is otherwise does wake up and is oriented to time place and person. He knows he is in [facility] and the year is 2021 and name of the current president. Could not tell the month. Speech and language functions are normal. Patient can name and repeat very well. No aphasia or dysarthria. Attention, concentration is slightly impaired and fund of knowledge is slightly limited. On cranial nerve examination, pupils are equal, round and reacting to light, visual ortiz are full on confrontation, with no neglect on double simultaneous stimulation. Extraocular muscles are intact with no nystagmus. Face is symmetric, tongue protrudes to the midline. Palatal elevation and sensation normal, hearing and shoulder shrug normal, facial sensation normal. Patient has very poor upper jaw dentition. On muscle strength testing, there is no pronator drift and the strength is normal in arms and legs distally and proximally. Deep tendon reflexes are symmetric 1+ to 2+ all over and plantars downgoing bilaterally. Sensory to touch is equal with no neglect on double simultaneous stimulation. Cerebellar function showed no ataxia for saynss-[id number] testing. No dysdiadochokinesia. No ataxia for zuan-ae-vnzj testing on either side. Tone and bulk of muscles normal. Gait deferred.. On general examination, there is no carotid bruit or murmur, S1-S2 audible. Chest is clear on consultation. Abdomen is soft nontender. No organomegaly, bowel sounds present. Peripheral pulses are present. No edema. Results - Laboratory Findings CBC and BMP: 12/27/21 06:48 12/27/21 06:48 Abnormal Lab Findings: Abnormal Labs 12/26/21 12/26/21 12/26/21 08:33 08:33 08:33 WBC 18.7 H MCV 100.7 H Neutrophils # 16.4 H Carbon Dioxide 17 L Glucose 189 H Albumin 5.1 H Urine Protein 3+ H Urine Glucose (UA) 4+ H Urine Ketones 1+ H Urine Blood Small H Hyaline Casts 18 H Urine Mucus Few H Urine Opiates Screen Detected H U Marijuana (THC) Screen Detected H Assessment and Plan Assessment: * New-onset multiple seizures, possible alcohol-related/withdrawal related. * Alcoholism * Tobacco use * Marijuana use Plan: * EEG to evaluate for any epileptiform activity. * No indication for antiepileptic medication, unless EEG shows epileptiform activity or patient has any recurrent seizures despite being sober. * Patient informed of [place] state law of no driving unless seizure free for 6 months, climbing ladders or operate dangerous machinery. * Watch for DTs. Thiamine, folate and multivitamins. * Neurology will follow. Thank you for the consult.
[2021-12-27] MEDS ORDERED: MULTIVITAMINS, THERA 1 EACH TAB PO SCH (09:00)
[2021-12-27 09:54] VITALS: BP 116/66; PULSE 82; RESP 14; TEMP 98.4
--- NOTE | 2021-12-27 12:16 | CT ---
EXAMINATION TYPE: CT brain wo con DATE OF EXAM: 12/26/2021 COMPARISON: Prior CT brain December 01, 2021 HISTORY: Seizure CT DLP: 1099 mGycm. Automated Exposure Control for Dose Reduction was Utilized. TECHNIQUE: CT scan of the head is performed without contrast. FINDINGS: There is no acute intracranial hemorrhage, mass effect, or midline shift identified. The ventricles and sulci are within normal limits in size. Gilbert-white matter differentiation is maintai giovani. The globes are intact bilaterally. There is mucous retention cyst or polyp in the right sphenoid sinus similar to prior otherwise paranasal sinuses are clear. IMPRESSION: No acute intracranial hemorrhage or midline shift is seen. Preliminary report provided by on site radiologist.
--- NOTE | 2021-12-27 12:26 | P.DS ---
Providers Date of admission: 12/26/21 11:21 Expected date of discharge: 12/27/21 Attending physician: Wesley Augustine MD Consults: 12/26/21 11:21 Consult Physician Routine Consulting Provider: Renuka Murphy Consult Reason/Comments: seizure Do you want consulting provider notified?: Yes Primary care physician: Stated None Hospital Course: Alcohol withdrawal syndrome Alcohol dependence, severe Nicotine abuse Marijuana abuse 36-year-old man with medical history of alcohol abuse disorder with dependence, nicotine abuse, marijuana abuse presented for alcohol withdrawal seizures. In the emergency room, patient was afebrile, 141/104, 98% on room air, heart rate 88. CBC has leukocytosis to 18.7 chemistries show bicarb of 17 with an anion gap of 21. Liver function tests are unremarkable. UA shows 3+ protein, 4+ glucose, 1+ ketones, 18 hyaline casts, urine mucus. Urine toxicology demonstrates positivity for opiates, marijuana. Serum EtOH was less than 10, Tylenol was less than 10, salicylates less than 1. EKG shows normal sinus rhythm with early repolarization changes as well as criteria for LVH. Patient did not require any further Ativan for his alcohol withdrawal and by following day he was alert and oriented 3 back to his normal mental status. She was subsequently discharged home with instructions to complete ceased drinking alcohol. He is prescribed naltrexone to decrease cravings, recommended to attend alcoholic's anonymous meetings. He'll follow up with primary care provider I spent 32 minutes coordinating this complex discharge, discharge date 12/27 Gen: Arousable to painful stimulus HEENT: normocephalic, atraumatic, good hearing acuity, moist mucous membranes Resp: good air exchange, breathing comfortably with no accessory muscle use CVS: good distal perfusion x 4, GI: soft, NTTP, ND : no SPT, no CVAT, marley catheter not present MSK: no pitting edema, no clubbing Neuro: non-focal, moving all extremities Patient Condition at Discharge: Stable Plan - Discharge Summary Discharge Rx Participant: Yes New Discharge Prescriptions: New Folic Acid 1 mg PO DAILY #30 tablet Multivitamins, Thera [Multivitamin (formulary)] 1 each PO DAILY #30 tab Naltrexone HCl [Revia] 50 mg PO DAILY #30 tablet Thiamine [Vitamin B-1] 100 mg PO BID-W/MEALS #28 tab Discharge Medication List Folic Acid 1 mg PO DAILY #30 tablet 12/27/21 [Rx] Multivitamins, Thera [Multivitamin (formulary)] 1 each PO DAILY #30 tab 12/27/21 [Rx] Naltrexone HCl [Revia] 50 mg PO DAILY #30 tablet 12/27/21 [Rx] Thiamine [Vitamin B-1] 100 mg PO BID-W/MEALS #28 tab 12/27/21 [Rx] Follow up Appointment(s)/Referral(s): None,Stated [Primary Care Provider] - 1-2 days (Follow up with primary in 1-2 days ) Patient Instructions/Handouts: Seizure/Epilepsy Discharge Instructions & Follow-Up Discharge Disposition: HOME SELF-CARE
--- NOTE | 2021-12-27 21:48 | EEG ---
ELECTROENCEPHALOGRAM REPORT PREAMBLE: This is a 36-year-old male with history of alcoholism, came with seizure. He had seizure 2 to 3 weeks ago as well. This study is performed to evaluate for any epileptiform activity. EEG FINDINGS: This is a 21-channel digital EEG recorded with video component, utilizing 10/20 international system with referential and bipolar montages. Background consists of well developed, well regulated, moderate voltage activity in 9 Hz alpha intermixed with some low-voltage fast frequency beta activity seen in bihemispheric region. Background is posterior dominant and reactive to eye opening and closing. Photic driving response was not seen. Some drowsiness was seen with appearance of bilaterally symmetric theta frequency rhythm. Deeper stages of sleep were not seen. Very occasional left temporal small, sharp appearing waves were seen during and between photic stimulation, which did not appear clearly epileptiform in nature. No electrographic seizure was recorded. EKG channel showed no obvious arrhythmia. IMPRESSION: This is probably a normal awake and drowsy EEG. No clear-cut focal or generalized epileptiform activity was seen. Some questionable small sharp appearing waves seen in the left temporal region around photic stimulation was probably artifactual/myogenic. Consider prolonged EEG if your suspicion for seizures is high. MMODL / IJN: [id number] /
== END 2021-12-27 10:44 | disposition home or self-care (01) | DRG 897 ==
LOC: EC 07:46 → 3SCARD 11:21
PROVIDERS: ADMIT Internal Medicine; ATTEND Internal Medicine
DX: F10.239 Alcohol dependence with withdrawal, unspecified (principal); G40.89 Other seizures; D72.829 Elevated white blood cell count, unspecified; F10.229 Alcohol dependence with intoxication, unspecified; F12.10 Cannabis abuse, uncomplicated; F17.210 Nicotine dependence, cigarettes, uncomplicated; F32.A Depression, unspecified; F41.9 Anxiety disorder, unspecified; Y90.8 Blood alcohol level of 240 mg/100 ml or more; S00.83XA Contusion of other part of head, initial encounter; W19.XXXA Unspecified fall, initial encounter; Z28.310 Unvaccinated for COVID-19; Z28.21 Immunization not carried out because of patient refusal
CPT/HCPCS: 36415; 70450; 80048; 80053; 80143; 80179; 80306; 80320; 81001; 83735; 85025; 93005; 95816; 96365; 96366; 96375; 96376; 99291

== ENCOUNTER 2022-02-11 14:47 | Inpatient (IN) | payer OTHER ==
[2022-02-11] MEDS ORDERED: SODIUM CHLORIDE 0.9% 1,000 ML IV STA (15:02)
--- NOTE | 2022-02-11 15:02 | ED ---
Seizure HPI - General Chief Complaint: Seizure Stated Complaint: Seizure Time Seen by Provider: 02/11/22 14:49 Source: patient, family, EMS, RN notes reviewed Mode of arrival: EMS Limitations: no limitations - History of Present Illness Initial Comments: Patient is a 36-year-old male presents to the emergency room via EMS after having a seizure earlier today witnessed by his fiance. She reports that he had tonic-clonic movement with a postictal state. She reports the seizure activity lasted approximately 3 minutes and afterwards he appeared to be "fighting the air" as he was coming out of the seizure. Clear to the patient he is currently on probation and has not had anything to drink in approximately 3 weeks however after having another seizure while in the room his fiance at the bedside believes that his last drink was 3 days ago. Between seizures and after postictal state initially evaluation revealed no acute complaints including any focal neurological deficits, headaches, dizziness, chest pain, shortness of breath, abdominal pain, nausea, vomiting, fevers or chills. Patient was hopeful that he would be discharged by 5 PM in order to go to work this evening. He was admitted to this facility back in December of this year for seizure activity to believed to be due to alcohol withdrawal workup at that time was negative and she was not started on any medication regarding seizures as it was his first seizure event. He has no other significant past medical history with the exception of EtOH, marijuana and opiate abuse. - Related Data Previous Rx's Medication Instructions Recorded Folic Acid 1 mg PO DAILY #30 tablet 12/27/21 Multivitamins, Thera [Multivitamin 1 each PO DAILY #30 tab 12/27/21 (formulary)] Naltrexone HCl [Revia] 50 mg PO DAILY #30 tablet 12/27/21 Thiamine [Vitamin B-1] 100 mg PO BID-W/MEALS #28 tab 12/27/21 Allergies Allergy/AdvReac Type Severity Reaction Status Date / Time No Known Allergies Allergy Verified 02/11/22 14:58 Review of Systems ROS Statement: Those systems with pertinent positive or pertinent negative responses have been documented in the HPI. ROS Other: All systems not noted in ROS Statement are negative. Past Medical History Past Medical History: No Reported History Additional Past Medical History / Comment(s): seizures History of Any Multi-Drug Resistant Organisms: None Reported Past Surgical History: Appendectomy Past Anesthesia/Blood Transfusion Reactions: No Reported Reaction Past Psychological History: Anxiety, Depression Smoking Status: Current every day smoker Past Alcohol Use History: Daily, Heavy Past Drug Use History: Marijuana General Exam - General Exam Comments Initial Comments: Assessment completed prior to second seizure after her first postictal state completed and patient alert and orientated 3. General appearance: alert, in no apparent distress Head exam: Present: atraumatic, normocephalic, normal inspection Eye exam: Present: normal appearance, PERRL, EOMI. Absent: scleral icterus, conjunctival injection, periorbital swelling ENT exam: Present: normal exam, mucous membranes moist Neck exam: Present: normal inspection, full ROM Respiratory exam: Present: normal lung sounds bilaterally. Absent: respiratory distress, wheezes, rales, rhonchi, stridor Cardiovascular Exam: Present: regular rate, normal rhythm, normal heart sounds. Absent: systolic murmur, diastolic murmur, rubs, gallop, clicks GI/Abdominal exam: Present: soft, normal bowel sounds. Absent: distended, tenderness, guarding, rebound, rigid Rectal exam: Present: deferred Extremities exam: Present: normal inspection, full ROM, normal capillary refill. Absent: tenderness, pedal edema, joint swelling, calf tenderness Back exam: Present: normal inspection Neurological exam: Present: alert, oriented X3, CN II-XII intact Psychiatric exam: Present: normal affect, normal mood Skin exam: Present: warm, dry, intact, normal color. Absent: rash Course Vital Signs 02/11/22 02/11/22 02/11/22 14:50 15:21 15:25 Temperature 98.2 F Pulse Rate 115 H 146 H 135 H Respiratory 18 14 16 Rate Blood Pressure 148/87 O2 Sat by Pulse 98 Oximetry 02/11/22 15:45 Temperature Pulse Rate 105 H Respiratory 20 Rate Blood Pressure 132/70 O2 Sat by Pulse 94 L Oximetry - Reevaluation(s) Reevaluation #1: Patient with recurrence of seizure activity. Dr. Krueger available to consult at the bedside and evaluated patient advising Ativan and IV Keppra bolus. Patient to be admitted to [facility] as that is who is previously admitted to and is currently on-call for city call with a consult to Dr. Krueger to be placed. Time: 15:58 Medical Decision Making - Medical Decision Making 36-year-old male presenting to the emergency room post ictal and healing well. Laboratory studies to be drawn including CBC, CMP, lactic acid, urine drug screen and serum alcohol level. EKG obtained showing sinus tachycardia. Will give additional IV fluids as only 100 mL given by EMS. Laboratory studies revealed leukocytosis will obtain urinalysis along with chest x-ray to rule out infectious etiology. Will defer IV antibiotics at this time. As indicated above and course recurrent seizure with concern for withdrawals. Will admit patient to [facility] and consult neurology whom has seen patient with [facility] orders IV fluids including thiamine/folate. Discussed case with Crispin ERECTOR OPERATOR for [facility] excepting of admission. No further orders advised at this time. Case discussed with Dr. Alaniz - Lab Data Result diagrams: 02/11/22 15:06 02/11/22 15:06 Lab Results 02/11/22 02/11/22 Range/Units 15:06 15:06 WBC 28.0 H (3.8-10.6) k/uL RBC 4.11 L (4.30-5.90) m/uL Hgb 13.9 (13.0-17.5) gm/dL Hct 40.0 (39.0-53.0) % MCV 97.5 (80.0-100.0) fL MCH 33.9 (25.0-35.0) pg MCHC 34.8 (31.0-37.0) g/dL RDW 12.4 (11.5-15.5) % Plt Count 325 (150-450) k/uL MPV 8.2 Neutrophils % 89 % Lymphocytes % 6 % Monocytes % 4 % Eosinophils % 0 % Basophils % 0 % Neutrophils # 24.8 H (1.3-7.7) k/uL Lymphocytes # 1.7 (1.0-4.8) k/uL Monocytes # 1.1 H (0-1.0) k/uL Eosinophils # 0.0 (0-0.7) k/uL Basophils # 0.1 (0-0.2) k/uL Sodium 135 L (137-145) mmol/L Potassium 3.9 (3.5-5.1) mmol/L Chloride 98 (98-107) mmol/L Carbon Dioxide 21 L (22-30) mmol/L Anion Gap 16 mmol/L BUN 15 (9-20) mg/dL Creatinine 0.67 (0.66-1.25) mg/dL Est GFR (CKD-EPI)AfAm >90 (>60 ml/min/1.73 sqM) Est GFR (CKD-EPI)NonAf >90 (>60 ml/min/1.73 sqM) Glucose 240 H (74-99) mg/dL Calcium 9.2 (8.4-10.2) mg/dL Magnesium 1.6 (1.6-2.3) mg/dL Total Bilirubin 0.6 (0.2-1.3) mg/dL AST 22 (17-59) U/L ALT 17 (4-49) U/L Alkaline Phosphatase 54 (38-126) U/L Total Protein 7.2 (6.3-8.2) g/dL Albumin 4.9 (3.5-5.0) g/dL - EKG Data EKG Comments: EKG shows sinus tachycardia, left ventricular hypertrophy and ST changes, ventricular rate 106 bpm, OK interval 130 ms, QRS duration 94 ms, QT/QTC 318/387 ms PRT axis XLVIII, 76, 40 When compared to previous EKG there are: no significant change Disposition Clinical Impression: Alcohol withdrawal seizure Disposition: ADMITTED IP TO THIS HOSP Condition: Stable Is patient prescribed a controlled substance at d/c from ED?: No Time of Disposition: 16:15
[2022-02-11 15:13] LABS: Basophils # (A) 0.1 k/uL (0-0.2); Basophils % (A) 0 %; Eosinophils % (A) 0 %; HGB 13.9 gm/dL (13.0-17.5); Lymphocytes # (A) 1.7 k/uL (1.0-4.8); Lymphocytes % (A) 6 %; MCH 33.9 pg (25.0-35.0); MCHC 34.8 g/dL (31.0-37.0); MCV 97.5 fL (80.0-100.0); Mean Platelet Volume 8.2; Monocytes # (A) 1.1 k/uL (0-1.0); Monocytes % (A) 4 %; Neutrophils # (A) 24.8 k/uL (1.3-7.7); Neutrophils % (A) 89 %; Platelet Count 325 k/uL (150-450); RBC 4.11 m/uL (4.30-5.90); RDW 12.4 % (11.5-15.5)
[2022-02-11] MEDS ORDERED: LORazepam 2 MG/ML INJ IV STA ×3 (15:22→15:28)
[2022-02-11 15:25] LABS: ALT 17 U/L (4-49); AST 22 U/L (17-59); African American GFR (CKD) >90 (>60 ml/min/1.73 sqM); Albumin 4.9 g/dL (3.5-5.0); Alkaline Phosphatase 54 U/L (38-126); Anion Gap 16 mmol/L; Blood Urea Nitrogen 15 mg/dL (9-20); Calcium 9.2 mg/dL (8.4-10.2); Carbon Dioxide 21 mmol/L (22-30); Chloride 98 mmol/L (98-107); Glucose 240 mg/dL (74-99); Magnesium 1.6 mg/dL (1.6-2.3); Non-African American GFR(CKD) >90 (>60 ml/min/1.73 sqM); Potassium 3.9 mmol/L (3.5-5.1); Sodium 135 mmol/L (137-145); Total Bilirubin 0.6 mg/dL (0.2-1.3); Total Protein 7.2 g/dL (6.3-8.2)
[2022-02-11] MEDS ORDERED: levETIRAcetam IV 1,500 MG in SALINE 1 100ML.BAG IVPB ONE (15:31)
[2022-02-11] MEDS ORDERED: LORazepam 1 MG TAB PO PRN (15:46)
[2022-02-11] MEDS ORDERED: LORazepam 2 MG/ML INJ IV PRN (15:46)
[2022-02-11] MEDS ORDERED: THIAMINE 100 MG/ML 2 ML VIAL IM STA (15:46)
[2022-02-11] MEDS ORDERED: NALOXONE 0.4 MG/ML 1 ML VIAL IV PRN (15:46)
[2022-02-11] MEDS: SODIUM CHLORIDE 0.9% 1,000 ML IV SCH ×2 (16:11→23:31)
[2022-02-11 16:23] LABS: Amorphous Sediment,Urine Occasional /hpf; Appearance,Urine Clear (Clear); Bilirubin,Urine Negative (Negative); Blood,Urine Negative (Negative); Color,Urine Yellow; Glucose,Urine (UA) 3+ (Negative); Hyaline Casts,Urine 9 /lpf (0-2); Ketones,Urine 1+ (Negative); Leukocyte Esterase,Urine Negative (Negative); Mucus,Urine Few /hpf; Nitrite,Urine Negative (Negative); PH, Urine 5.5 (5.0-8.0); Protein,Urine 2+ (Negative); RBC,Urine 1 /hpf (0-5); Specific Gravity,Urine 1.019 (1.001-1.035); Squamous Epithelial Cell,Urine <1 /hpf (0-4); Urobilinogen,Urine <2.0 mg/dL (<2.0); WBC,Urine 2 /hpf (0-5)
--- NOTE | 2022-02-11 16:34 | P.HPIM ---
History of Present Illness H&P Date: 02/11/22 History of Presenting Illness: Patient is a very pleasant 36-year-old male with a past medical history of alcohol abuse disorder, withdrawal seizures, nicotine dependence, and marijuana abuse. He presented to the emergency department with a chief complaint of alcohol withdrawal seizures. Patient was reportedly found by his fianc actively seizing with reports of clonic tonic movements and she activated EMS. Upon arrival to the emergency department patient again had witnessed seizures requiring treatment with benzodiazepines totaling 6 mg of Ativan and was given a loading dose of Keppra 1000 mg. CBC revealing leukocytosis with WBC count of 28 and hyperglycemia with glucose of 240. Urinalysis negative for infection and urine drug screen positive for opiates and marijuana. Serum alcohol less than 10. Patient admitted under our services with consultation to neurology. Patient was seen and fully evaluated at bedside in the emergency department. Patient was postictal/sedated and therefore full review of systems cannot be completed, family not present. Information obtained from patient's chart and ED staff. Review of systems: Unable to perform complete ROS secondary to patient postictal/lethargic state. Physical exam: Vital signs reviewed and stable. General: Nontoxic, no distress and appears stated age. Derm: Skin warm and dry, normal coloration for ethnicity. Head: Atraumatic, normocephalic and symmetric. Eyes: Pupils pinpoint, no lid lag, and anicteric sclera Mouth: no lip lesions, mucus membranes moist. No evidence of biting tongue or cheek. Cardiovascular: regular rate and rhythm with normal S1S2, no murmur, positive posterior tibial pulses bilaterally, and cap refill < 2 seconds. Lungs: Respirations even, regular, and unlabored on room air. Lungs CTA bilaterally, no rhonchi, no rales, no wheezing, and no accessory muscle usage. Abdominal: soft, nontender to palpation, no guarding, no appreciable organomegaly. No evidence of involuntary loss of bowel or bladder Ext: Patient moving all extremities independently. No gross muscle atrophy, no edema, no contractures Neuro/psych: Patient postictal/sedated after receiving 6 mg of Ativan due to recurrent seizures. Assessment and Plan of Care: Alcohol withdrawal seizure Alcohol abuse disorder -CIWA Protocol with symptom triggered medication management with benzodiazep sylvie. -Continuous IV hydration. -Thiamine 100 mg twice a day -Multivitamin daily -Folate 1 mg daily -Seizure, fall, and aspiration precautions in place. -Urine drug screen positive for opiates and marijuana -Continued close monitoring of electrolytes and replace as needed. -Telemetry monitoring. -Seizure precautions, aspiration precautions, and fall precautions in place. -Patient informed of [place] state law stating no driving until seizure free for 6 months. Patient also instructed to avoid climbing ladders, operating dangerous or heavy machinery or unsupervised swimming until seizure free for 6 months. The patient is admitted with an anticipated greater than 2 midnight stay for evaluation of alcohol withdrawal seizures CODE STATUS: Full code DVT prophylaxis: Heparin Discussed with: RN, family not present and patient and postictal/sedated state. Anticipated discharge date: Clinical course to determine Anticipated discharge place: Home A total of 35 minutes was spent on the care of this complex patient more than 50% of the time was spent in counseling and care coordination. I reviewed the documentation as provided by the BETHANY above, who is the original author of this note. I agree with the documented assessment and plan, with the following changes: none Past Medical History Past Medical History: No Reported History Additional Past Medical History / Comment(s): seizures History of Any Multi-Drug Resistant Organisms: None Reported Past Surgical History: Appendectomy Past Anesthesia/Blood Transfusion Reactions: No Reported Reaction Past Psychological History: Anxiety, Depression Smoking Status: Current every day smoker Past Alcohol Use History: Daily, Heavy Past Drug Use History: Marijuana Medications and Allergies Home Medications Medication Instructions Recorded Confirmed Type Folic Acid 1 mg PO DIRECTED 02/11/22 02/11/22 History Multivitamins, Thera [Multivitamin 1 tab PO DIRECTED 02/11/22 02/11/22 History (formulary)] Naltrexone HCl [Revia] 50 mg PO DIRECTED 02/11/22 02/11/22 History Thiamine [Vitamin B-1] 100 mg PO DIRECTED 02/11/22 02/11/22 History Allergies Allergy/AdvReac Type Severity Reaction Status Date / Time No Known Allergies Allergy Verified 02/11/22 16:18 Physical Exam Osteopathic Statement: *. No significant issues noted on an osteopathic structural exam other than those noted in the History and Physical/Consult. Vitals: Vital Signs Temp Pulse Resp BP Pulse Ox 02/11/22 16:27 106 H 18 99 02/11/22 16:10 106 H 20 115/65 98 02/11/22 15:45 105 H 20 132/70 94 L 02/11/22 15:25 135 H 16 02/11/22 15:21 146 H 14 02/11/22 14:50 98.2 F 115 H 18 148/87 98 Intake and Output 02/11/22 02/11/22 02/11/22 06:59 14:59 22:59 Other: Weight 79.379 kg Results CBC & Chem 7: 02/11/22 15:06 02/11/22 15:06 Labs: Abnormal Lab Results - Last 24 Hours (Table) 02/11/22 02/11/22 02/11/22 Range/Units 15:06 15:06 16:07 WBC 28.0 H (3.8-10.6) k/uL RBC 4.11 L (4.30-5.90) m/uL Neutrophils # 24.8 H (1.3-7.7) k/uL Monocytes # 1.1 H (0-1.0) k/uL Sodium 135 L (137-145) mmol/L Carbon Dioxide 21 L (22-30) mmol/L Glucose 240 H (74-99) mg/dL Urine Protein 2+ H (Negative) Urine Glucose (UA) 3+ H (Negative) Urine Ketones 1+ H (Negative) Amorphous Sediment Occasional H (None) /hpf Hyaline Casts 9 H (0-2) /lpf Urine Mucus Few H (None) /hpf
[2022-02-11 16:50] LABS: Amphetamine Screen,Urine Not Detected (NotDetected); Barbiturate Screen,Urine Not Detected (NotDetected); Benzodiazepines Screen,Urine Not Detected (NotDetected); Cocaine Screen,Urine Not Detected (NotDetected); Methadone Screen, Urine Not Detected (NotDetected); Opiate Screen,Urine Detected (NotDetected); Oxycodone Screen, Urine Not Detected (NotDetected); Phencyclidine Screen,Urine Not Detected (NotDetected); Tricyclic Antidepressant,Urine Not Detected (NotDetected); Urn Cannabinoid Scrn Detected (NotDetected)
[2022-02-11] MEDS: THIAMINE 100 MG TAB PO SCH (17:31)
[2022-02-11] MEDS ORDERED: LORazepam 1 MG/0.5 ML VIAL IV PRN (17:49)
[2022-02-11] MEDS: levETIRAcetam IV 1,000 MG in SALINE 1 100ML.BAG IVPB SCH (21:36)
[2022-02-11] MEDS: HEPARIN SODIUM,PORCINE/PF 5,000 UNIT/0.5 ML SYRINGE SQ SCH (23:31)
[2022-02-12] MEDS: THIAMINE 100 MG TAB PO SCH (06:27)
[2022-02-12] MEDS: SODIUM CHLORIDE 0.9% 1,000 ML IV SCH (06:29)
[2022-02-12] MEDS ORDERED: LORazepam 1 MG/0.5 ML VIAL IV PRN (08:02)
[2022-02-12] MEDS: levETIRAcetam IV 1,000 MG in SALINE 1 100ML.BAG IVPB SCH (08:57)
[2022-02-12 08:58] LABS: Basophils % (A) 0 %; Eosinophils # (A) 0.2 k/uL (0-0.7); Eosinophils % (A) 2 %; HCT 35.5 % (39.0-53.0); Lymphocytes # (A) 2.1 k/uL (1.0-4.8); Lymphocytes % (A) 27 %; MCH 33.7 pg (25.0-35.0); MCHC 33.9 g/dL (31.0-37.0); MCV 99.4 fL (80.0-100.0); Mean Platelet Volume 7.9; Monocytes # (A) 0.5 k/uL (0-1.0); Monocytes % (A) 6 %; Neutrophils # (A) 4.8 k/uL (1.3-7.7); Neutrophils % (A) 62 %; Platelet Count 246 k/uL (150-450); RBC 3.57 m/uL (4.30-5.90); RDW 12.1 % (11.5-15.5); WBC 7.7 k/uL (3.8-10.6)
[2022-02-12] MEDS: HEPARIN SODIUM,PORCINE/PF 5,000 UNIT/0.5 ML SYRINGE SQ SCH (08:58)
[2022-02-12] MEDS ORDERED: MULTIVITAMINS, THERA 1 EACH TAB PO SCH (09:00)
[2022-02-12] MEDS ORDERED: THIAMINE 100 MG TAB PO SCH (09:00)
[2022-02-12] MEDS ORDERED: FOLIC ACID 1 MG TAB PO SCH (09:00)
--- NOTE | 2022-02-12 09:26 | P.CNNES ---
History of Present Illness Consult date: 02/12/22 Requesting physician: Althea Friend Reason for Consult: seizure History of Present Illness: This is a 36-year-old gentleman with history of seizure and thought due to alcohol withdrawal, alcohol use, tobacco use who presented because of seizure episodes. According to the patient on 02/11/2022 he was feeling clammy warm and and felt off as a result his fianc witnessed the tonic-clonic seizure-like activity with post ictal state that lasted 3 minutes and it appears the patient had seizure-like activity in the ED. He denies any further alcohol use and is last drink was about 2-3 weeks ago and stated he is on probation. His fianc notified myself and the rest of the ED team that she saw cans on the floor a cou ple days ago and not sure if he is drinking or not. Again patient notified me that he is not drinking any alcohol and the last alcohol use was about to 3 weeks ago It seems that the patient received Ativan a total of the 6 mg and I ordered Keppra 1500 mg once and for his seizure-like activity for 02/11/2022 because of his seizure activity that he had twice. Currently the patient stated that he is doing much better. He denies any tongue bite, urinary bowel incontinence. Denies of any illicit drug use. He stated that he denies any other seizure-like activity since his last visit in December 2021 in our facility. He has not seen a neurologist since does not have insurance. Of note the patient was evaluated by Dr. Murphy (Neuro-Hospitalist) on 12/26/2021 because of his seizures and he felt the seizure was likely due to alcohol withdrawal. The routine EEG was normal. Please refer to Dr. Murphy's note for further details Some of the workup during this hospitalization consisted of: Patient is afebrile. Initial white blood cells 20.0 and the repeat his serum 0.7 thousand which otf lized. Seems reactive from seizures. Initial serum glucose is 240. AST and ALT is within normal limits. Calcium magnesium is within normal limits. Sodium is 135. Urine drug screen is positive for opiates and marijuana otherwise serum alcohol was less than 10 and the rest is not detected. Review of Systems Review of system: The 12 point system was reviewed and apparent positive and negative per HPI. Past Medical History Past Medical History: No Reported History Additional Past Medical History / Comment(s): seizures History of Any Multi-Drug Resistant Organisms: None Reported Past Surgical History: Appendectomy Past Anesthesia/Blood Transfusion Reactions: No Reported Reaction Past Psychological History: Anxiety, Depression Smoking Status: Current every day smoker Past Alcohol Use History: Daily, Heavy Past Drug Use History: Marijuana Medications and Allergies Home Medications Medication Instructions Recorded Confirmed Type Folic Acid 1 mg PO DIRECTED 02/11/22 02/11/22 History Multivitamins, Thera [Multivitamin 1 tab PO DIRECTED 02/11/22 02/11/22 History (formulary)] Naltrexone HCl [Revia] 50 mg PO DIRECTED 02/11/22 02/11/22 History Thiamine [Vitamin B-1] 100 mg PO DIRECTED 02/11/22 02/11/22 History levETIRAcetam [Keppra] 750 mg PO Q12HR 30 Days #60 tab 02/12/22 Rx Allergies Allergy/AdvReac Type Severity Reaction Status Date / Time No Known Allergies Allergy Verified 02/11/22 16:18 Physical Examination - Vital Signs Vital Signs: Vital Signs Temp Pulse Pulse Resp BP BP Pulse Ox 02/12/22 03:56 97.7 F 69 18 94/58 98 02/12/22 02:00 71 18 02/11/22 23:44 97.7 F 71 18 111/61 97 02/11/22 21:30 64 18 02/11/22 21:27 97.8 F 64 18 138/87 100 02/11/22 18:00 90 18 119/70 96 02/11/22 16:54 88 18 108/67 95 02/11/22 16:27 106 H 18 99 02/11/22 16:10 106 H 20 115/65 98 02/11/22 15:45 105 H 20 132/70 94 L 02/11/22 15:25 135 H 16 02/11/22 15:21 146 H 14 02/11/22 14:50 98.2 F 115 H 18 148/87 98 Intake and Output 02/11/22 02/12/22 02/12/22 22:59 06:59 14:59 Intake Total 360 0 Output Total 525 Balance -165 0 Intake: Intake, IV Titration 360 Amount Sodium Chloride 0.9% 1, 260 000 ml @ 130 mls/hr IV . [id number] [facility] Rx#:[id number] levETIRAcetam IV 1,500 mg 100 In Saline 1 100ml.bag @ 400 mls/hr IVPB ONCE ONE Rx#:[id number] Oral 0 Output: Urine 525 Other: Voiding Method Toilet Toilet Urinal Urinal # Voids 1 Weight 79.379 kg GENERAL: The patient is lying in bed and is not in acute distress. CHEST: The heart rate is regular rate rhythm. No murmurs to auscultation. LUNG: Clear to auscultation bilaterally no wheezing noted throughout. Not labored breathing. ABDOMEN/GI: Bowel sounds present in all 4 quadrants. No tenderness to palpation throughout. NEUROLOGICAL: Higher mental function: The patient is awake, alert, oriented to self, place and time. Patient is following commands. No aphasia and no neglect. Cranial nerves: The pupils are round, equal and reactive to light and accommodation. Visual ortiz are full to confrontation throughout. Extraocular movement is intact no nystagmus is noted. Facial sensation is normal to touch throughout. The facial strength is normal throughout. Hearing is normal bilaterally to hand rub. Tongue is midline and moved [id number] without any difficulty. No dysarthria is noted. Shoulder shrug is normal bilaterally. Motor: The strength is 5 over 5 throughout. Normal tone and bulk. Cerebellum: Normal finger to nose heel to phelps bilaterally. Sensation: Sensation is normal to touch throughout. Reflexes (right/left): 2+ throughout. Plantars are downgoing bilaterally. Results - Laboratory Findings CBC and BMP: 02/12/22 08:06 02/12/22 08:06 Abnormal Lab Findings: Abnormal Labs 02/11/22 02/11/22 02/11/22 15:06 15:06 16:07 WBC 28.0 H RBC 4.11 L Hgb Hct Neutrophils # 24.8 H Monocytes # 1.1 H Sodium 135 L Carbon Dioxide 21 L Glucose 240 H Urine Protein Urine Glucose (UA) Urine Ketones Amorphous Sediment Hyaline Casts Urine Mucus Urine Opiates Screen Detected H U Marijuana (THC) Screen Detected H 02/11/22 02/12/22 16:07 08:06 WBC RBC 3.57 L Hgb 12.0 L Hct 35.5 L Neutrophils # Monocytes # Sodium Carbon Dioxide Glucose Urine Protein 2+ H Urine Glucose (UA) 3+ H Urine Ketones 1+ H Amorphous Sediment Occasional H Hyaline Casts 9 H Urine Mucus Few H Urine Opiates Screen U Marijuana (THC) Screen Assessment and Plan Assessment: Break-through seizure likely due to alcohol withdrawal History of alcohol withdrawal seizure (likely had component of both true epilepsy and some component due to alcohol withdrawal/or alcohol lowering seizure threshold) Alcohol use (last drink 2-3 weeks ago) but then later stated his last drink was 4 days ago and not drinking heavily Urine drug screen positive for opiates Tobacco use Marijuana use Plan: I lowered his Keppra from thousand milligram every 12 hours IV to 750mg every 12 hours (new medication during this admission) and does not require higher dose since has not tried 750mg dose and has not failed on it. I notified him of side-effects of medications. Ordered EEG and preliminary report is normal. On seizure precaution and pads. He was counseled on continuing alcohol cessation and tobacco cessation. Per [place] DMV regarding his seizures, to avoid driving for 6 months until seizure free, avoid heights, avoid using heavy machinery or swim unassisted and this was notified to him. Patient to be seen by neurologist as outpatient within 1-2 weeks. The plan is discussed with patient and primary team. If no further seizures and EEG is negative for seizures then clear for discharge. Thank you for the consultation. UPDATE: Preliminary EEG: Is normal and there is no focal slowing, epileptiform discharges or seizure. I spoke with the primary team and she notified me that she spoke with him and he notified her that continues to drink alcohol time to time. I went back and spoke with him and he stated he is not drinking heavily like before and last drink was 4 days ago. Will continue Keppra 750mg bid and for him to follow-up with neurologist as outpatient for further evaluation. Patient is clear for discharge from neurological perspective. Time with Patient: Greater than 30
[2022-02-12 09:34] LABS: ALT 13 U/L (4-49); AST 21 U/L (17-59); African American GFR (CKD) >90 (>60 ml/min/1.73 sqM); Albumin 3.6 g/dL (3.5-5.0); Alkaline Phosphatase 42 U/L (38-126); Anion Gap 5 mmol/L; Blood Urea Nitrogen 11 mg/dL (9-20); Calcium 8.4 mg/dL (8.4-10.2); Carbon Dioxide 24 mmol/L (22-30); Chloride 111 mmol/L (98-107); Glucose 91 mg/dL (74-99); Non-African American GFR(CKD) >90 (>60 ml/min/1.73 sqM); Potassium 3.9 mmol/L (3.5-5.1); Sodium 140 mmol/L (137-145); Total Bilirubin 0.7 mg/dL (0.2-1.3); Total Protein 5.6 g/dL (6.3-8.2)
[2022-02-12 12:07] VITALS: BP 133/70; PULSE 61; RESP 15; TEMP 98.1
--- NOTE | 2022-02-12 14:29 | P.DS ---
Providers Date of admission: 02/11/22 15:44 Expected date of discharge: 02/12/22 Attending physician: Aida Shelton MD Consults: 02/11/22 15:46 Consult Physician Routine Consulting Provider: Agustin Krueger Consult Reason/Comments: Seizure Do you want consulting provider notified?: Already Contacted Primary care physician: Stated None Hospital Course: Discharge Diagnosis: Seizure suspected to be resulting from alcohol withdrawal seizure, however underlying epilepsy cannot be excluded. Patient strongly encouraged to stop all alcohol use and discharged home on Keppra 750 mg twice daily. Alcohol abuse disorder, patient admitted to drinking over the past few days has extensive history of alcohol abuse Polysubstance abuse, again patient has long-standing history of alcohol abuse and urine drug screen also positive for marijuana and opioids. Leukocytosis, reactive from seizure resolved. Hospital Course: Patient is a very pleasant 36-year-old male with a past medical history of alcohol abuse disorder, withdrawal seizures, nicotine dependence, and marijuana abuse. He presented to the emergency department with a chief complaint of alcohol withdrawal seizures. Patient was reportedly found by his fianc actively seizing with reports of clonic tonic movements and she activated EMS. Upon arrival to the emergency department patient again had witnessed seizures requiring treatment with benzodiazepines totaling 6 mg of Ativan and was given a loading dose of Keppra 1000 mg. EKG showing sinus tachycardia at 116 bpm. CBC revealing leukocytosis with WBC count of 28 and hyperglycemia with glucose of 240. Urinalysis negative for infection and urine drug screen positive for op iates and marijuana. Serum alcohol less than 10. Patient admitted under our services with consultation to neurology. Patient monitored overnight and had no further episodes of seizure activity. Previous leukocytosis resolved. Morning labs unremarkable. Vital signs unremarkable. Patient was evaluated by neurology and underwent an EEG which was negative for epileptiform activity. Patient admitting to drinking over the past few days, seizure activity likely resulting from withdrawal seizures however underlying seizure disorder cannot be ruled out. Patient being discharged home on Keppra 750 mg twice daily and to follow up outpatient with PCP and neurology. Physical exam: Vital signs reviewed and stable. General: non toxic, no distress, appears at stated age Derm: warm, dry Head: atraumatic, normocephalic, symmetric Eyes: EOMI, no lid lag, anicteric sclera Mouth: no lip lesion, mucus membranes moist Cardiovascular: S1S2 reg, no murmur, positive posterior tibial pulse bilateral, Lungs: CTA bilateral, no rhonchi, no rales , no accessory muscle use Abdominal: soft, nontender to palpation, no guarding, no appreciable organomegaly Ext: no gross muscle atrophy, no edema, no contractures Neuro: CN II-XI grossly intact, no focal neuro deficits Psych: Alert, oriented, appropriate affect A total of 32 minutes of time were spent preparing this complex discharge summary. Pt was discharged on 02/12/22 at 1:50 PM. Patient Condition at Discharge: Stable Plan - Discharge Summary Discharge Rx Participant: No New Discharge Prescriptions: New levETIRAcetam [Keppra] 750 mg PO Q12HR 30 Days #60 tab Continue Thiamine [Vitamin B-1] 100 mg PO DIRECTED Folic Acid 1 mg PO DIRECTED Naltrexone HCl [Revia] 50 mg PO DIRECTED Multivitamins, Thera [Multivitamin (formulary)] 1 tab PO DIRECTED Discharge Medication List Folic Acid 1 mg PO DIRECTED 02/11/22 [History] Multivitamins, Thera [Multivitamin (formulary)] 1 tab PO DIRECTED 02/11/22 [History] Naltrexone HCl [Revia] 50 mg PO DIRECTED 02/11/22 [History] Thiamine [Vitamin B-1] 100 mg PO DIRECTED 02/11/22 [History] levETIRAcetam [Keppra] 750 mg PO Q12HR 30 Days #60 tab 02/12/22 [Rx] Follow up Appointment(s)/Referral(s): Althea Bergeron MD [STAFF PHYSICIAN] - 1 Week Hair Cronin MD [Medical Doctor] - 1 Week Patient Instructions/Handouts: Nonepileptic Seizures (DC), Alcohol Withdrawal (DC), Polysubstance Abuse (ED) Activity/Diet/Wound Care/Special Instructions: Activity: As tolerated. Take breaks as needed. Diet: Regular diet Special Instructions: Take all of your medications as directed and remember to keep all of your doctor's appointments and follow-up as needed. [place] state law states no driving until seizure free for 6 months. It is also important to avoid climbing ladders, operating dangerous or heavy machinery or unsupervised swimming until seizure free for 6 months. Highly recommend all cessation of alcohol use. Thank you for allowing us to participate in your care, it was truly a pleasure having you for our patient!!! Discharge/Stand Alone Forms: AA Meetings [facility], Community Resources, Outpatient Counseling, In Substance Abuse Facilities, Personal [employer] Discharge Disposition: HOME SELF-CARE
--- NOTE | 2022-02-13 06:17 | EEG ---
ELECTROENCEPHALOGRAM REPORT CLINICAL HISTORY: This is a 36-year-old gentleman with history of alcohol withdrawal seizures, who presented because of recurrent seizures. The video EEG is obtained to evaluate for seizure epileptiform activity. RELEVANT MEDICATIONS: Ativan and Keppra. EEG TYPE: A routine 21-channel EEG is performed with video using the 10/20 electrode placement system. DESCRIPTION: Wakefulness is only obtained. During awake state, the posterior-dominant rhythm consists of [id number] voltage of 8.5 to 9.5 hertz activity that is well modulated, well sustained. There is no physiological stage 2 sleep architecture. There is no focal slowing. Interictal and ictal is none. ACTIVATION PROCEDURE: Photic stimulation did not evoke a posterior driving response. There is no abnormality during the photic stimulation. Hyperventilation: No abnormality noted. CLINICAL INTERPRETATION: This is a normal routine EEG. There is no focal slowing, epileptiform discharge or seizure on the EEG. Clinical correlation is recommended. MARK / HAROLDO: [id number] / [id number]
== END 2022-02-12 14:47 | disposition home or self-care (01) | DRG 897 ==
LOC: EC 14:47 → 3SCARD 15:44
PROVIDERS: ADMIT Internal Medicine; ATTEND Internal Medicine
DX: F10.239 Alcohol dependence with withdrawal, unspecified (principal); G40.901 Epilepsy, unspecified, not intractable, with status epilepticus; F11.10 Opioid abuse, uncomplicated; F12.10 Cannabis abuse, uncomplicated; F32.A Depression, unspecified; F41.9 Anxiety disorder, unspecified; D72.829 Elevated white blood cell count, unspecified; Z28.310 Unvaccinated for COVID-19; F17.210 Nicotine dependence, cigarettes, uncomplicated; Z71.6 Tobacco abuse counseling; Z79.899 Other long term (current) drug therapy; Z71.41 Alcohol abuse counseling and surveillance of alcoholic; Z65.3 Problems related to other legal circumstances; R73.9 Hyperglycemia, unspecified
CPT/HCPCS: 36415; 80053; 80306; 80320; 81001; 83735; 85025; 93005; 95816; 96361; 96372; 96374; 96375; 99285

== ENCOUNTER 2022-05-11 23:40 | Emergency (ER) | payer BC, OTHER ==
[2022-05-11 23:44] VITALS: BP 141/95; PULSE 95; RESP 18; TEMP 97.8
[2022-05-12] MEDS ORDERED: HYDROcodone/APAP 5-325MG 1 EACH TAB PO STA
[2022-05-12] MEDS ORDERED: ACET/COD 300 MG/30 MG STARTER PACK 6 TAB BTL PO STA
--- NOTE | 2022-05-12 00:05 | ED ---
ENT HPI - General Chief complaint: Dental/Oral Stated complaint: Dental pain Time Seen by Provider: 05/11/22 23:51 Source: patient, RN notes reviewed Mode of arrival: ambulatory Limitations: no limitations - History of Present Illness Initial comments: This is a 36-year-old male who presents to the emergency department for dental pain. States that he is genetically predisposed to bad teeth and he has multiple cracked teeth on the right. Over the last 2-3 days, he has started to develop increased pain and swelling to the right side of the face. He is concerned that he may have developed an infection. Denies any fevers or chills. He does not have dental insurance, making it difficult for him to get definitive management for this. Denies any fevers, chills, sore throat, cough, dyspnea, chest pain, palpitations, abdominal pain, nausea, vomiting, diarrhea, back pain, or headaches. MD complaint: tooth pain Onset/Timin -: days(s) - Related Data Home Medications Medication Instructions Recorded Confirmed Folic Acid 1 mg PO DIRECTED 02/11/22 02/11/22 Multivitamins, Thera [Multivitamin 1 tab PO DIRECTED 02/11/22 02/11/22 (formulary)] Naltrexone HCl [Revia] 50 mg PO DIRECTED 02/11/22 02/11/22 Thiamine [Vitamin B-1] 100 mg PO DIRECTED 02/11/22 02/11/22 Previous Rx's Medication Instructions Recorded levETIRAcetam [Keppra] 750 mg PO Q12HR 30 Days #60 tab 02/12/22 Ibuprofen [Motrin] 800 mg PO Q8H PRN #20 tab 05/12/22 Penicillin V Potassium [Pen Vee K] 500 mg PO Q6H 10 Days #40 tablet 05/12/22 Allergies Allergy/AdvReac Type Severity Reaction Status Date / Time No Known Allergies Allergy Verified 02/11/22 16:18 Review of Systems ROS Statement: Those systems with pertinent positive or pertinent negative responses have been documented in the HPI. ROS Other: All systems not noted in ROS Statement are negative. Past Medical History Past Medical History: No Reported History Additional Past Medical History / Comment(s): seizures History of Any Multi-Drug Resistant Organisms: None Reported Past Surgical History: Appendectomy Past Anesthesia/Blood Transfusion Reactions: No Reported Reaction Past Psychological History: Anxiety, Depression Smoking Status: Current every day smoker Past Alcohol Use History: Daily, Heavy Past Drug Use History: Marijuana General Exam Limitations: no limitations General appearance: alert, in no apparent distress Head exam: Present: atraumatic, normocephalic, normal inspection ENT exam: Present: other (Mild fullness and swelling to the right cheek. Multiple dental caries and cracked teeth.) Respiratory exam: Present: normal lung sounds bilaterally. Absent: respiratory distress, wheezes, rales, rhonchi, stridor Cardiovascular Exam: Present: regular rate, normal rhythm, normal heart sounds. Absent: systolic murmur, diastolic murmur, rubs, gallop, clicks Neurological exam: Present: alert, oriented X3, CN II-XII intact Psychiatric exam: Present: normal affect, normal mood Skin exam: Present: warm, dry, intact, normal color. Absent: rash Course Vital Signs 05/11/22 23:41 Temperature 97.8 F Pulse Rate 95 Respiratory 18 Rate Blood Pressure 141/95 O2 Sat by Pulse 100 Oximetry Medical Decision Making - Medical Decision Making This is a 36-year-old male who presents to the emergency department for dental pain. Was pt. sent in by a medical professional or institution? @ -No Did you speak to anyone other than the patient for history? @ -His Did you review nursing and triage notes? @ -Yes, and I agree, it is accurate with regards to the patient's symptoms. Were old charts reviewed? @ -No Differential Diagnosis? @ Differential Dental Pain: -dental abscess, dental carries, chipped teeth, gingivitis, this is not meant to be an all-inclusive list. What testing was considered but not performed? (CT, X-rays, U/S, labs)? Why? @ -None What meds were considered but not given? Why? @ -None Did you discuss the management of the patient with other professionals? @ -No Did you reconcile home meds? @ -No Was smoking cessation discussed for >3mins.? @ -I discussed smoking cessation for greater than 3 minutes. The risk of smoking were discussed with the patient including but not limited to risks of cancer, stroke, coronary artery disease and COPD. Also discussed with patient were multiple methods of quitting smoking. Lastly we discussed the financial cost of smoking. Was critical care preformed (if so, how long)? @ -No Were there social determinants of health that impacted care today? How? (Homelessness, low income, unemployed, alcoholism, drug addiction, transportation, low edu. Level, literacy, decrease access to med. care, correction, rehab)? @ -No dental insurance, making him unable to follow up with a dentist for definitive management of his teeth, leading to recurrent infections. Was there de-escalation of care discussed even if they declined? (Discuss DNR or withdrawal of care, Hospice)? @ -No What co-morbidities impacted this encounter? (DM, HTN, Smoking, COPD, CAD, Cancer, CVA, Hep., AIDS, mental health diagnosis, sleep apnea, morbid obesity)? @ -Smoking, alcoholism Was patient admitted / discharged? @ -Discharged. He was given a dose of Pen-Vee K in the emergency department and a prescription was sent to his pharmacy. He was also given a dose of Toradol in the emergency department and a starter pack for tylenol #3. He was given a prescription for Ibuprofen with dosing instructions reviewed. Advised alternating this with Tylenol and using warm compresses on the cheek. Undiagnosed new problem with uncertain prognosis? @ -None Drug Therapy requiring intensive monitoring for toxicity (Heparin, Nitro, Insulin, Cardizem)? @ -None Were any procedures done? @ -None Diagnosis/symptom? @ -Dental abscess Acute, or Chronic, or Acute on Chronic? @ -Acute Uncomplicated (without systemic symptoms) or Complicated (systemic symptoms)? @ -Uncomplicated Side effects of treatment? @ -None Exacerbation, Progression, or Severe Exacerbation] @ -Not applicable Poses a threat to life or bodily function? @ -The pain is impacting his ability to function. Return precautions reviewed in depth, the patient is instructed to return to the emergency department with any new, worsening, or concerning symptoms. Patient verbalized understanding. This case was discussed in detail with the attending ED physician, Dr. Shannon. Presentation, findings, and treatment plan discussed in detail as well. Disposition Clinical Impression: Dental abscess Disposition: HOME SELF-CARE Instructions (If sedation given, give patient instructions): Dental Abscess (ED) Additional Instructions: Return to the emergency department with any new, worsening, or concerning symptoms. Take the antibiotic as prescribed for ten days. Alternate with ibuprofen and Tylenol for pain relief. You can also try applying warm compresses to the cheek. Follow up with your primary care provider in 1-2 days. Prescriptions: Ibuprofen [Motrin] 800 mg PO Q8H PRN #20 tab PRN Reason: Pain Penicillin V Potassium [Pen Vee K] 500 mg PO Q6H 10 Days #40 tablet Is patient prescribed a controlled substance at d/c from ED?: No Referrals: None,Stated [Primary Care Provider] - 1-2 days
[2022-05-12] MEDS ORDERED: PENICILLIN V POTASSIUM 250 MG TAB PO ONE (00:15)
== END 2022-05-12 00:37 | disposition home or self-care (01) ==
LOC: EC 23:40
DX: K04.7 Periapical abscess without sinus (principal); F41.9 Anxiety disorder, unspecified; F32.A Depression, unspecified; F12.90 Cannabis use, unspecified, uncomplicated; F17.200 Nicotine dependence, unspecified, uncomplicated
CPT/HCPCS: 99282

== ENCOUNTER 2023-01-22 08:44 | Emergency (ER) | payer OTHER ==
[2023-01-22] MEDS ORDERED: levETIRAcetam IV 500 MG/5 ML VIAL IVP STA (08:58)
[2023-01-22] MEDS ORDERED: SODIUM CHLORIDE 0.9% 1,000 ML IV STA (08:58)
[2023-01-22] MEDS ORDERED: LORazepam 2 MG/ML INJ IV STA (08:58)
[2023-01-22 08:59] VITALS: RESP 18; TEMP 98.2
[2023-01-22 09:14] LABS: Basophils # (A) 0.1 k/uL (0-0.2); Basophils % (A) 1 %; Eosinophils # (A) 0.2 k/uL (0-0.7); Eosinophils % (A) 3 %; HCT 42.2 % (39.0-53.0); HGB 14.6 gm/dL (13.0-17.5); Lymphocytes # (A) 2.4 k/uL (1.0-4.8); Lymphocytes % (A) 27 %; MCH 35.5 pg (25.0-35.0); MCHC 34.6 g/dL (31.0-37.0); MCV 102.7 fL (80.0-100.0); Macrocytosis Slight; Mean Platelet Volume 7.9; Monocytes # (A) 0.5 k/uL (0-1.0); Monocytes % (A) 6 %; Neutrophils # (A) 5.4 k/uL (1.3-7.7); Neutrophils % (A) 62 %; Platelet Count 237 k/uL (150-450); RBC 4.11 m/uL (4.30-5.90); RDW 13.3 % (11.5-15.5); WBC 8.7 k/uL (3.8-10.6)
[2023-01-22 09:37] LABS: ALT 53 U/L (4-49); AST 57 U/L (17-59); African American GFR (CKD) >90 (>60 ml/min/1.73 sqM); Albumin 4.7 g/dL (3.5-5.0); Alkaline Phosphatase 77 U/L (38-126); Anion Gap 19 mmol/L; Blood Urea Nitrogen 12 mg/dL (9-20); Calcium 9.3 mg/dL (8.4-10.2); Carbon Dioxide 16 mmol/L (22-30); Chloride 105 mmol/L (98-107); Glucose 185 mg/dL (74-99); Magnesium 1.6 mg/dL (1.6-2.3); Non-African American GFR(CKD) >90 (>60 ml/min/1.73 sqM); Potassium 4.3 mmol/L (3.5-5.1); Sodium 140 mmol/L (137-145); Total Bilirubin 0.4 mg/dL (0.2-1.3); Total Protein 7.5 g/dL (6.3-8.2)
--- NOTE | 2023-01-22 10:05 | ED ---
Seizure HPI - General Chief Complaint: Seizure Stated Complaint: siezure Time Seen by Provider: 01/22/23 08:45 Source: patient, EMS, RN notes reviewed Mode of arrival: EMS Limitations: no limitations - History of Present Illness Initial Comments: 37-year-old male presents emergency department to complaint of a seizure. This was a witnessed seizure at home. Patient states his last seizure was in January. Patient states she's been out of his Keppra since August. Patient states he was having insurance issues and did not have his Keppra. Denies any specific complaints other than mild headache, he did bite his tongue. - Related Data Home Medications Medication Instructions Recorded Confirmed Folic Acid 1 mg PO DIRECTED 02/11/22 02/11/22 Multivitamins, Thera [Multivitamin 1 tab PO DIRECTED 02/11/22 02/11/22 (formulary)] Naltrexone HCl [Revia] 50 mg PO DIRECTED 02/11/22 02/11/22 Thiamine [Vitamin B-1] 100 mg PO DIRECTED 02/11/22 02/11/22 Previous Rx's Medication Instructions Recorded Ibuprofen [Motrin] 800 mg PO Q8H PRN #20 tab 05/12/22 Penicillin V Potassium [Pen Vee K] 500 mg PO Q6H 10 Days #40 tablet 05/12/22 levETIRAcetam [Keppra] 750 mg PO Q12HR 30 Days #60 tab 01/22/23 Allergies Allergy/AdvReac Type Severity Reaction Status Date / Time No Known Allergies Allergy Verified 01/22/23 10:11 Review of Systems ROS Statement: Those systems with pertinent positive or pertinent negative responses have been documented in the HPI. ROS Other: All systems not noted in ROS Statement are negative. Past Medical History Past Medical History: No Reported History, Seizure Disorder Additional Past Medical History / Comment(s): seizures History of Any Multi-Drug Resistant Organisms: None Reported Past Surgical History: Appendectomy Past Anesthesia/Blood Transfusion Reactions: No Reported Reaction Past Psychological History: Anxiety, Depression Smoking Status: Current every day smoker Past Alcohol Use History: Daily, Heavy Past Drug Use History: Marijuana General Exam Limitations: no limitations General appearance: alert, in no apparent distress Head exam: Present: atraumatic, normocephalic, normal inspection Eye exam: Present: normal appearance, PERRL, EOMI. Absent: scleral icterus, conjunctival injection, periorbital swelling ENT exam: Present: normal exam, mucous membranes moist Neck exam: Present: normal inspection, full ROM. Absent: tenderness, meningismus, lymphadenopathy Respiratory exam: Present: normal lung sounds bilaterally. Absent: respiratory distress, wheezes, rales, rhonchi, stridor Cardiovascular Exam: Present: regular rate, normal rhythm, normal heart sounds. Absent: systolic murmur, diastolic murmur, rubs, gallop, clicks Neurological exam: Present: alert, oriented X3, reflexes normal. Absent: motor sensory deficit Course Vital Signs 01/22/23 01/22/23 01/22/23 08:45 09:00 09:14 Temperature 98.2 F Pulse Rate 102 H 96 102 H Respiratory 18 18 18 Rate Blood Pressure 133/102 133/102 137/93 O2 Sat by Pulse 97 96 96 Oximetry 01/22/23 10:00 Temperature Pulse Rate 89 Respiratory 18 Rate Blood Pressure 139/101 O2 Sat by Pulse 98 Oximetry Medical Decision Making - Medical Decision Making Was pt. sent in by a medical professional or institution ([facility], [employer], urgent care, hospital, or shelter...) When possible be specific @ -No Did you speak to anyone other than the patient for history (EMS, parent, family, police, friend...)? What history was obtained from this source @ -No Did you review nursing and triage notes (agree or disagree)? Why? @ -I reviewed and agree with nursing and triage notes Were old charts reviewed (outside hosp., previous admission, EMS record, old EKG, old radiological studies, urgent care reports/EKG's, shelter records)? Report findings @ -No old charts were reviewed Differential Diagnosis (chest pain, altered mental status, abdominal pain women, abdominal pain men, vaginal bleeding, weakness, fever, dyspnea, syncope, headache, dizziness, GI bleed, back pain, seizure, CVA, palpatations, mental health, musculoskeletal)? @ -Differential Seizure: Recurrent seizure disorder, febrile seizure, alcohol withdrawal, stimulants, meningitis, encephalitis, intercranial hemorrhage, intracranial tumor, stroke, eclampsia, thyrotoxicosis, hypocalcemia, hyponatremia, hypernatremia, hypomagnesemia, psychogenic, this is not meant to be an all-inclusive list. able EKG interpreted by me (3pts min.). @ -As above X-rays interpreted by me (1pt min.). @ -None done CT interpreted by me (1pt min.). @ -None done U/S interpreted by me (1pt. min.). @ -None done What testing was considered but not performed or refused? (CT, X-rays, U/S, labs)? Why? @ -None What meds were considered but not given or refused? Why? @ -None Did you discuss the management of the patient with other professionals (professionals i.e. , PA, [employer], lab, RT, psych nurse, manager social work, garbage collection supervisor, teacher, hydrographical technical officer, rn case manager)? Give summary @ -No Was smoking cessation discussed for >3mins.? @ -No Was critical care preformed (if so, how long)? @ -No Were there social determinants of health that impacted care today? How? (Homelessness, low income, unemployed, alcoholism, drug addiction, transportation, low edu. Level, literacy, decrease access to med. care, penitentiary, rehab)? @ -No Was there de-escalation of care discussed even if they declined (Discuss DNR or withdrawal of care, Hospice)? DNR status @ -No What co-morbidities impacted this encounter? (DM, HTN, Smoking, COPD, CAD, Cancer, CVA, ARF, Chemo, Hep., AIDS, mental health diagnosis, sleep apnea, morbid obesity)? @ -Seizure history Was patient admitted / discharged? Hospital course, mention meds given and route, prescriptions, significant lab abnormalities, going to OR and other pertinent info. @ -Discharge patient was given Keppra, Ativan. Patient was given prescription for his Keppra. Patient is advised follow-up neurology. Return parameters were discussed. Undiagnosed new problem with uncertain prognosis? @ -No Drug Therapy requiring intensive monitoring for toxicity (Heparin, Nitro, Insulin, Cardizem)? @ -No Were any procedures done? @ -No Diagnosis/symptom? @ -[Seizure Acute, or Chronic, or Acute on Chronic? @ -Acute Uncomplicated (without systemic symptoms) or Complicated (systemic symptoms)? @ -[Complicated Side effects of treatment? @ -No Exacerbation, Progression, or Severe Exacerbation? @ -No Poses a threat to life or bodily function? How? (Chest pain, [place], [place], pneumonia, PE, COPD, DKA, ARF, appy, cholecystitis, CVA, Diverticulitis, Homicidal, Suicidal, threat to staff... and all critical care pts) @ -No - Lab Data Result diagrams: 01/22/23 09:04 01/22/23 09:04 Lab Results 01/22/23 01/22/23 Range/Units 09:04 09:04 WBC 8.7 (3.8-10.6) k/uL RBC 4.11 L (4.30-5.90) m/uL Hgb 14.6 (13.0-17.5) gm/dL Hct 42.2 (39.0-53.0) % MCV 102.7 H (80.0-100.0) fL MCH 35.5 H (25.0-35.0) pg MCHC 34.6 (31.0-37.0) g/dL RDW 13.3 (11.5-15.5) % Plt Count 237 (150-450) k/uL MPV 7.9 Neutrophils % 62 % Lymphocytes % 27 % Monocytes % 6 % Eosinophils % 3 % Basophils % 1 % Neutrophils # 5.4 (1.3-7.7) k/uL Lymphocytes # 2.4 (1.0-4.8) k/uL Monocytes # 0.5 (0-1.0) k/uL Eosinophils # 0.2 (0-0.7) k/uL Basophils # 0.1 (0-0.2) k/uL Macrocytosis Slight Sodium 140 (137-145) mmol/L Potassium 4.3 (3.5-5.1) mmol/L Chloride 105 (98-107) mmol/L Carbon Dioxide 16 L (22-30) mmol/L Anion Gap 19 mmol/L BUN 12 (9-20) mg/dL Creatinine 0.56 L (0.66-1.25) mg/dL Est GFR (CKD-EPI)AfAm >90 (>60 ml/min/1.73 sqM) Est GFR (CKD-EPI)NonAf >90 (>60 ml/min/1.73 sqM) Glucose 185 H (74-99) mg/dL Calcium 9.3 (8.4-10.2) mg/dL Magnesium 1.6 (1.6-2.3) mg/dL Total Bilirubin 0.4 (0.2-1.3) mg/dL AST 57 (17-59) U/L ALT 53 H (4-49) U/L Alkaline Phosphatase 77 (38-126) U/L Total Protein 7.5 (6.3-8.2) g/dL Albumin 4.7 (3.5-5.0) g/dL - EKG Data -: EKG Interpreted by Me EKG Comments: EKG performed at 852 sinus rhythm rate 95 RI 149/95 QT/QTC 336/389 Disposition Clinical Impression: Generalized seizure Disposition: HOME SELF-CARE Condition: Stable Instructions (If sedation given, give patient instructions): Seizure/Epilepsy Discharge Instructions & Follow-Up, Recurrent Seizures in Adults (ED) Additional Instructions: Please return to the Emergency Department if symptoms worsen or any other concerns. Prescriptions: levETIRAcetam [Keppra] 750 mg PO Q12HR 30 Days #60 tab Is patient prescribed a controlled substance at d/c from ED?: No Referrals: None,Stated [Primary Care Provider] - 1-2 days Time of Disposition: 10:04
[2023-01-22 10:21] VITALS: BP 139/101; PULSE 89
== END 2023-01-22 10:18 | disposition home or self-care (01) ==
LOC: EC 08:44
DX: G40.409 Other generalized epilepsy and epileptic syndromes, not intractable, without status epilepticus (principal); F41.9 Anxiety disorder, unspecified; F32.A Depression, unspecified; F17.200 Nicotine dependence, unspecified, uncomplicated; F12.90 Cannabis use, unspecified, uncomplicated; Z79.899 Other long term (current) drug therapy
CPT/HCPCS: 36415; 93005; 80053; 83735; 85025; 99284; 96374; 96375; 96361; J2060; J1953

== ENCOUNTER 2023-01-23 20:48 | Emergency (ER) | payer OTHER ==
[2023-01-23] MEDS ORDERED: ACET/COD 300 MG/30 MG STARTER PACK 6 TAB BTL PO STA (21:52)
[2023-01-23] MEDS ORDERED: AMOXIC-POT CLAV 875MG STARTER PACK 2 TAB BTL PO STA (21:52)
[2023-01-23] MEDS ORDERED: IBUPROFEN 600 MG TAB PO STA (21:53)
[2023-01-23] MEDS ORDERED: IBUPROFEN 600 MG STARTER PACK 4 TAB BTL PO STA (21:53)
--- NOTE | 2023-01-23 21:55 | ED ---
ENT HPI - General Chief complaint: Dental/Oral Stated complaint: Dental Pain Time Seen by Provider: 01/23/23 21:13 Source: patient, RN notes reviewed, old records reviewed Mode of arrival: ambulatory Limitations: no limitations - History of Present Illness Initial comments: This is a 37-year-old male to the emergency department for evaluation patient irwin s history of dental disease and dental caries presented today for evaluation of dental illness. A she has dental pain and recently had a cracked broken tooth his right rear lower tooth. No drainage no significant swelling or fever noted. Pain is severe especially with movement of his mouth. No significant malodorous breath MD complaint: tooth pain -: days(s) Location: tooth # Severity: severe Severity scale (1-10): 8 Consistency: constant Improves with: none Worsens with: none Context- Dental: history of dental caries Associated Symptoms: sore throat - Related Data Home Medications Medication Instructions Recorded Confirmed Folic Acid 1 mg PO DIRECTED 02/11/22 02/11/22 Multivitamins, Thera [Multivitamin 1 tab PO DIRECTED 02/11/22 02/11/22 (formulary)] Naltrexone HCl [Revia] 50 mg PO DIRECTED 02/11/22 02/11/22 Thiamine [Vitamin B-1] 100 mg PO DIRECTED 02/11/22 02/11/22 Previous Rx's Medication Instructions Recorded Ibuprofen [Motrin] 800 mg PO Q8H PRN #20 tab 05/12/22 Penicillin V Potassium [Pen Vee K] 500 mg PO Q6H 10 Days #40 tablet 05/12/22 levETIRAcetam [Keppra] 750 mg PO Q12HR 30 Days #60 tab 01/22/23 Amoxic-Pot Clav 875-125Mg 1 tab PO Q12HR #20 tablet 01/23/23 [Augmentin 875-125] Allergies Allergy/AdvReac Type Severity Reaction Status Date / Time No Known Allergies Allergy Verified 01/23/23 20:51 Review of Systems ROS Statement: Those systems with pertinent positive or pertinent negative responses have been documented in the HPI. ROS Other: All systems not noted in ROS Statement are negative. Past Medical History Past Medical History: Seizure Disorder Additional Past Medical History / Comment(s): seizures History of Any Multi-Drug Resistant Organisms: None Reported Past Surgical History: Appendectomy Past Anesthesia/Blood Transfusion Reactions: No Reported Reaction Past Psychological History: Anxiety, Depression Smoking Status: Current every day smoker Past Alcohol Use History: Occasional Past Drug Use History: Marijuana General Exam Limitations: no limitations General appearance: alert, in no apparent distress Head exam: Present: atraumatic, normocephalic, normal inspection Eye exam: Present: normal appearance, PERRL, EOMI. Absent: scleral icterus, conjunctival injection, periorbital swelling ENT exam: Present: normal exam, mucous membranes moist Neck exam: Present: normal inspection. Absent: tenderness, meningismus, lymphadenopathy Respiratory exam: Present: normal lung sounds bilaterally. Absent: respiratory distress, wheezes, rales, rhonchi, stridor Cardiovascular Exam: Present: regular rate, normal rhythm, normal heart sounds. Absent: systolic murmur, diastolic murmur, rubs, gallop, clicks GI/Abdominal exam: Present: soft, normal bowel sounds. Absent: distended, tenderness, guarding, rebound, rigid Extremities exam: Present: normal inspection, full ROM, normal capillary refill. Absent: tenderness, pedal edema, joint swelling, calf tenderness Back exam: Present: normal inspection Neurological exam: Present: alert, oriented X3, CN II-XII intact Psychiatric exam: Present: normal affect, normal mood Skin exam: Present: warm, dry, intact, normal color. Absent: rash Course Vital Signs 01/23/23 01/23/23 20:48 22:50 Temperature 98.3 F 98.9 F Pulse Rate 88 85 Respiratory 22 18 Rate Blood Pressure 157/108 138/84 O2 Sat by Pulse 100 97 Oximetry - Reevaluation(s) Reevaluation #1: 01/23/23 22:51 Medical record is reviewed Reevaluation #2: 01/23/23 22:51 Patient symptoms are improved Reevaluation #3: 01/23/23 22:51 Patient informed results questions answered Reevaluation #4: 01/23/23 22:51 Was pt. sent in by a medical professional or institution (, [facility], [employer], urgent care, hospital, or correction...) When possible be specific @ -no Did you speak to anyone other than the patient for history (EMS, parent, family, police, friend...)? What history was obtained from this source @ -no Did you review nursing and triage notes (agree or disagree)? Why? @ -agree Are old charts reviewed (outside hosp., previous admission, EMS record, old EKG, old radiological studies, urgent care reports/EKG's, correction records)? Report findings @ -yes Differential Diagnosis (chest pain, altered mental status, abdominal pain women, abdominal pain men, vaginal bleeding, weakness, fever, dyspnea, syncope, headache, dizziness, GI bleed, back pain, seizure, CVA, palpatations, mental health, musculoskeletal)? @ -prior EKG interpreted by me (3pts min.). @ -no X-rays interpreted by me (1pt min.). @ -no CT interpreted by me (1pt min.). @ -no U/S interpreted by me (1pt. min.). @ -no What testing was considered but not performed or refused? (CT, X-rays, U/S, labs)? Why? @ -none What meds were considered but not given or refused? Why? @ -none Did you discuss the management of the patient with other professionals (professionals i.e. , PA, TAG MA[employer]ER, lab, RT, psych nurse, social service technician, capacity planning engineer, teacher, chief environmental commitment officer, sample case porter)? Give summary @ -no Was smoking cessation discussed for >3mins.? @ -no Was critical care preformed (if so, how long)? @ -no Were there social determinants of health that impacted care today? How? (Homelessness, low income, unemployed, alcoholism, drug addiction, transportation, low edu. Level, literacy, decrease access to med. care, detention, rehab)? @ -none Was there de-escalation of care discussed even if they declined (Discuss DNR or withdrawal of care, Hospice)? DNR status @ -no What co-morbidities impacted this encounter? (DM, HTN, Smoking, COPD, CAD, Cancer, CVA, ARF, Chemo, Hep., AIDS, mental health diagnosis, sleep apnea, morbid obesity)? @ -none Was patient admitted / discharged? Hospital course, mention meds given and route, prescriptions, significant lab abnormalities, going to OR and other pertinent info. @ - 37 male to the emergency department for evaluation of dental disease with dental abscess and dental caries. Patient placed on antibiotics and pain control can be discharged home Discharge Undiagnosed new problem with uncertain prognosis? @ -no Drug Therapy requiring intensive monitoring for toxicity (Heparin, Nitro, Insulin, Cardizem)? @ -no Were any procedures done? @ -no Diagnosis/symptom? @ -Dental caries dental abscess Acute, or Chronic, or Acute on Chronic? @ -Acute Uncomplicated (without systemic symptoms) or Complicated (systemic symptoms)? @ -Complicated Side effects of treatment? @ -no Exacerbation, Progression, or Severe Exacerbation? @ -exacerbation Poses a threat to life or bodily function? How? (Chest pain, [place], [place], pneumonia, PE, COPD, DKA, ARF, appy, cholecystitis, CVA, Diverticulitis, Homicidal, Suicidal, threat to staff... and all critical care pts) @ -no Medical Decision Making - Medical Decision Making 37 male to the emergency department for evaluation of dental disease with dental abscess and dental caries. Patient placed on antibiotics and pain control can be discharged home Disposition Clinical Impression: Dental abscess, Dental caries Disposition: HOME SELF-CARE Condition: Good Instructions (If sedation given, give patient instructions): Dental Abscess (ED), Toothache (ED) Prescriptions: Amoxic-Pot Clav 875-125Mg [Augmentin 875-125] 1 tab PO Q12HR #20 tablet Is patient prescribed a controlled substance at d/c from ED?: No Referrals: None,Stated [Primary Care Provider] - 1-2 days Time of Disposition: 22:00
[2023-01-23 23:00] VITALS: BP 138/84; PULSE 85; RESP 18; TEMP 98.9
== END 2023-01-23 22:50 | disposition home or self-care (01) ==
LOC: EC 20:48
DX: K02.9 Dental caries, unspecified (principal); K04.7 Periapical abscess without sinus; F17.200 Nicotine dependence, unspecified, uncomplicated; F12.90 Cannabis use, unspecified, uncomplicated; Z86.59 Personal history of other mental and behavioral disorders
CPT/HCPCS: 99283

== ENCOUNTER 2023-04-22 09:32 | Emergency (ER) | payer SELFPAY ==
[2023-04-22 09:45] LABS: Glucose,Whole Blood 200 mg/dL (70-110)
[2023-04-22] MEDS ORDERED: LORazepam 2 MG/ML INJ IV STA (09:48)
[2023-04-22] MEDS ORDERED: SODIUM CHLORIDE 0.9% 1,000 ML IV STA (09:48)
[2023-04-22] MEDS ORDERED: levETIRAcetam IV 500 MG/5 ML VIAL IVP STA (09:48)
--- NOTE | 2023-04-22 09:53 | ED ---
General Adult HPI - General Chief complaint: Seizure Stated complaint: Seizure Time Seen by Provider: 04/22/23 09:45 Source: patient, RN notes reviewed Mode of arrival: EMS Limitations: no limitations - History of Present Illness Initial comments: Patient is a pleasant 37 over male presenting to the emergency department with concern for seizure. Episode occurred prior to arrival. Patient had a second one earlier today around 3 or 4 the morning while he was sleeping. A phelps believes both of these lasted less than 5 minutes. Patient does have history of seizures previously, approximately 6 or 7 times. Patient doesn't believe these are related to alcohol. Patient did drink a pint of alcohol last night. Patient denies any injury. Patient states he has had repeated normal previous head computed tomography scan. - Related Data Previous Rx's Medication Instructions Recorded levETIRAcetam [Keppra] 750 mg PO Q12HR 30 Days #60 tab 01/22/23 Penicillin V Potassium [Pen Vee K] 500 mg PO QID #40 tablet 04/22/23 levETIRAcetam [Keppra] 750 mg PO BID #60 tab 04/22/23 Allergies Allergy/AdvReac Type Severity Reaction Status Date / Time No Known Allergies Allergy Verified 04/22/23 10:19 Review of Systems ROS Statement: Those systems with pertinent positive or pertinent negative responses have been documented in the HPI. ROS Other: All systems not noted in ROS Statement are negative. Constitutional: Denies: fever Eyes: Denies: eye pain ENT: Denies: ear pain Respiratory: Denies: cough, dyspnea Cardiovascular: Denies: chest pain Endocrine: Denies: fatigue Gastrointestinal: Denies: abdominal pain Past Medical History Past Medical History: Seizure Disorder Additional Past Medical History / Comment(s): seizures History of Any Multi-Drug Resistant Organisms: None Reported Past Surgical History: Appendectomy Past Anesthesia/Blood Transfusion Reactions: No Reported Reaction Past Psychological History: Anxiety, Depression Smoking Status: Current every day smoker Past Alcohol Use History: Daily, Heavy Past Drug Use History: Marijuana General Exam Limitations: no limitations General appearance: alert, in no apparent distress Head exam: Present: atraumatic, normocephalic Eye exam: Present: normal appearance, PERRL, EOMI ENT exam: Present: normal oropharynx Neck exam: Present: normal inspection. Absent: tenderness Respiratory exam: Present: normal lung sounds bilaterally Cardiovascular Exam: Present: regular rate, normal rhythm GI/Abdominal exam: Present: soft. Absent: tenderness Extremities exam: Present: normal inspection Neurological exam: Present: alert, oriented X3, CN II-XII intact. Absent: motor sensory deficit Expanded Neurological exam: Present: protecting the airway Speech: Present: fluid speech Cranial nerves: EOM's Intact: Normal Motor strength exam: RUE: 5, LUE: 5, RLE: 5, LLE: 5 Eye Response: (4) open spontaneously Motor Response: (6) obeys commands Verbal Response: (5) oriented Psychiatric exam: Present: normal affect, normal mood Skin exam: Present: normal color Course Vital Signs 04/22/23 04/22/23 09:37 11:37 Temperature 97.3 F L Pulse Rate 90 85 Respiratory 18 18 Rate Blood Pressure 142/100 117/82 O2 Sat by Pulse 97 97 Oximetry EKG Findings - EKG Results: EKG: interpreted by ERMD (LVH criteria), sinus rhythm, normal axis, normal ST/T Procedures - Incision & Drainage Consent Obtained: verbal consent Site: oral (Right upper first premolar region dental abscess) Anesthetic Used: lidocaine 1% Scalpel Used: #11 I&D Drainage Obtained: Pus Culture Obtained?: No Patient Tolerated Procedure: well, no complications - Nerve Block Consent Obtained: verbal consent Local Anesthetic Used: Lidocaine 1% Side: right Intraoral Nerve Block: supraperiosteal Patient Tolerated Procedure: well, no complications Medical Decision Making - Medical Decision Making Was pt. sent in by a medical professional or institution (, [facility], COLLABORATIVE PHYSICIAN, urgent care, hospital, or jail...) When possible be specific @ -No Did you speak to anyone other than the patient for history (EMS, parent, family, police, friend...)? What history was obtained from this source @ -No Did you review nursing and triage notes (agree or disagree)? Why? @ -I reviewed and agree with nursing and triage notes Were old charts reviewed (outside hosp., previous admission, EMS record, old EKG, old radiological studies, urgent care reports/EKG's, jail records)? Report findings @ -No old charts were reviewed Differential Diagnosis (chest pain, altered mental status, abdominal pain women, abdominal pain men, vaginal bleeding, weakness, fever, dyspnea, syncope, headache, dizziness, GI bleed, back pain, seizure, CVA, palpatations, mental health, musculoskeletal)? @ -Differential Seizure: Recurrent seizure disorder, febrile seizure, alcohol withdrawal, stimulants, meningitis, encephalitis, intercranial hemorrhage, intracranial tumor, stroke, eclampsia, thyrotoxicosis, hypocalcemia, hyponatremia, hypernatremia, hypomagnesemia, psychogenic, this is not meant to be an all-inclusive list. EKG interpreted by me (3pts min.). @ -As above X-rays interpreted by me (1pt min.). @ -None done CT interpreted by me (1pt min.). @ -None done U/S interpreted by me (1pt. min.). @ -None done What testing was considered but not performed or refused? (CT, X-rays, U/S, labs)? Why? @ -Consider computed tomography scan of the brain however patient states he has had a previously with previous seizures What meds were considered but not given or refused? Why? @ -None Did you discuss the management of the patient with other professionals (professionals i.e. , PA, COLLABORATIVE PHYSICIAN, lab, RT, psych nurse, perinatal social worker, rent and housing investigator, teacher, unclaimed property officer, enrollment manager)? Give summary @ -No Was smoking cessation discussed for >3mins.? @ -No Was critical care preformed (if so, how long)? @ -No Were there social determinants of health that impacted care today? How? (Homele ssness, low income, unemployed, alcoholism, drug addiction, transportation, low edu. Level, literacy, decrease access to med. care, penitentiary, rehab)? @ -No Was there de-escalation of care discussed even if they declined (Discuss DNR or withdrawal of care, Hospice)? DNR status @ -No What co-morbidities impacted this encounter? (DM, HTN, Smoking, COPD, CAD, Cancer, CVA, ARF, Chemo, Hep., AIDS, mental health diagnosis, sleep apnea, morbid obesity)? @ -None Was patient admitted / discharged? Hospital course, mention meds given and route, prescriptions, significant lab abnormalities, going to OR and other pertinent info. @ -Patient reevaluated and feeling much better. Patient is updated on results. Patient be discharged and does need a refill of his prescription of Keppra 750. Undiagnosed new problem with uncertain prognosis? @ -No Drug Therapy requiring intensive monitoring for toxicity (Heparin, Nitro, Insulin, Cardizem)? @ -No Were any procedures done? @ -See above Diagnosis/symptom? @ -Generalized seizure, dental abscess Acute, or Chronic, or Acute on Chronic? @ -Acute, acute Uncomplicated (without systemic symptoms) or Complicated (systemic symptoms)? @ -default Side effects of treatment? @ -No Exacerbation, Progression, or Severe Exacerbation? @ -No Poses a threat to life or bodily function? How? (Chest pain, USA, ID, pneumonia, PE, COPD, DKA, ARF, appy, cholecystitis, CVA, Diverticulitis, Homicidal, Suicidal, threat to staff... and all critical care pts) @ -No - Lab Data Result diagrams: 04/22/23 09:51 04/22/23 09:51 Lab Results 04/22/23 04/22/23 04/22/23 Range/Units 09:39 09:51 09:51 WBC 14.7 H (3.8-10.6) k/uL RBC 4.69 (4.30-5.90) m/uL Hgb 16.1 (13.0-17.5) gm/dL Hct 47.6 (39.0-53.0) % MCV 101.5 H (80.0-100.0) fL MCH 34.3 (25.0-35.0) pg MCHC 33.8 (31.0-37.0) g/dL RDW 12.1 (11.5-15.5) % Plt Count 244 (150-450) k/uL MPV 8.1 Neutrophils % 85 % Lymphocytes % 9 % Monocytes % 5 % Eosinophils % 1 % Basophils % 0 % Neutrophils # 12.4 H (1.3-7.7) k/uL Lymphocytes # 1.3 (1.0-4.8) k/uL Monocytes # 0.7 (0-1.0) k/uL Eosinophils # 0.1 (0-0.7) k/uL Basophils # 0.0 (0-0.2) k/uL Sodium 139 (137-145) mmol/L Potassium 4.2 (3.5-5.1) mmol/L Chloride 104 (98-107) mmol/L Carbon Dioxide 20 L (22-30) mmol/L Anion Gap 15 mmol/L BUN 11 (9-20) mg/dL Creatinine 0.53 L (0.66-1.25) mg/dL Est GFR (CKD-EPI)AfAm >90 (>60 ml/min/1.73 sqM) Est GFR (CKD-EPI)NonAf >90 (>60 ml/min/1.73 sqM) Glucose 197 H (74-99) mg/dL POC Glucose (mg/dL) 200 H (70-110) mg/dL POC Glu Customer Service Driver ID Alejandro Cote Calcium 9.5 (8.4-10.2) mg/dL Magnesium 1.7 (1.6-2.3) mg/dL Total Bilirubin 0.8 (0.2-1.3) mg/dL AST 33 (17-59) U/L ALT 26 (4-49) U/L Alkaline Phosphatase 84 (38-126) U/L Total Protein 7.6 (6.3-8.2) g/dL Albumin 4.7 (3.5-5.0) g/dL Serum Alcohol <10 mg/dL Disposition Clinical Impression: Generalized seizure, Dental abscess Disposition: HOME SELF-CARE Instructions (If sedation given, give patient instructions): Seizure/Epilepsy Discharge Instructions & Follow-Up, Dental Abscess (ED) Additional Instructions: Prescriptions have been sent to pharmacy. Please do follow-up with primary care physician in the next day or 2 for recheck. Return for increased swelling, fever, increased seizures, weakness or confusion, worsening or changing symptoms or any other concerns. Prescriptions: levETIRAcetam [Keppra] 750 mg PO BID #60 tab Penicillin V Potassium [Pen Vee K] 500 mg PO QID #40 tablet Is patient prescribed a controlled substance at d/c from ED?: No Referrals: Jose L Garland MD [STAFF PHYSICIAN] - 1-2 days Time of Disposition: 12:11
[2023-04-22 10:16] LABS: Basophils % (A) 0 %; Eosinophils # (A) 0.1 k/uL (0-0.7); Eosinophils % (A) 1 %; HCT 47.6 % (39.0-53.0); HGB 16.1 gm/dL (13.0-17.5); Lymphocytes # (A) 1.3 k/uL (1.0-4.8); Lymphocytes % (A) 9 %; MCH 34.3 pg (25.0-35.0); MCHC 33.8 g/dL (31.0-37.0); MCV 101.5 fL (80.0-100.0); Mean Platelet Volume 8.1; Monocytes # (A) 0.7 k/uL (0-1.0); Monocytes % (A) 5 %; Neutrophils # (A) 12.4 k/uL (1.3-7.7); Neutrophils % (A) 85 %; Platelet Count 244 k/uL (150-450); RBC 4.69 m/uL (4.30-5.90); RDW 12.1 % (11.5-15.5); WBC 14.7 k/uL (3.8-10.6)
[2023-04-22 10:25] LABS: ALT 26 U/L (4-49); AST 33 U/L (17-59); African American GFR (CKD) >90 (>60 ml/min/1.73 sqM); Albumin 4.7 g/dL (3.5-5.0); Alcohol <10 mg/dL; Alkaline Phosphatase 84 U/L (38-126); Anion Gap 15 mmol/L; Blood Urea Nitrogen 11 mg/dL (9-20); Calcium 9.5 mg/dL (8.4-10.2); Carbon Dioxide 20 mmol/L (22-30); Chloride 104 mmol/L (98-107); Glucose 197 mg/dL (74-99); Magnesium 1.7 mg/dL (1.6-2.3); Non-African American GFR(CKD) >90 (>60 ml/min/1.73 sqM); Potassium 4.2 mmol/L (3.5-5.1); Sodium 139 mmol/L (137-145); Total Bilirubin 0.8 mg/dL (0.2-1.3); Total Protein 7.6 g/dL (6.3-8.2)
[2023-04-22] MEDS ORDERED: LIDOCAINE 1% INJ 10MG/ML (20 ML MDV) SQ ONE (11:15)
[2023-04-22 12:34] VITALS: BP 122/84; PULSE 78; RESP 16; TEMP 98.1
== END 2023-04-22 12:22 | disposition home or self-care (01) ==
LOC: EC 09:32
DX: K04.7 Periapical abscess without sinus (principal); G40.409 Other generalized epilepsy and epileptic syndromes, not intractable, without status epilepticus; F17.200 Nicotine dependence, unspecified, uncomplicated; F12.90 Cannabis use, unspecified, uncomplicated; Z86.59 Personal history of other mental and behavioral disorders
CPT/HCPCS: 36415; 93005; 80053; 83735; 85025; 80320; 41800; 99284; 96374; 96375; 96361 ×2; J2060; J2001; J1953

== ENCOUNTER 2024-01-19 11:07 | Emergency (ER) | payer SELFPAY ==
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
[2024-01-19 14:17] VITALS: BP 143/83; PULSE 69; RESP 17; TEMP 99
== END 2024-01-19 14:18 | disposition home or self-care (01) ==
LOC: EC 11:07
CPT/HCPCS: 70450; 70486; 72125; 99284

== ENCOUNTER 2024-03-31 00:05 | Emergency (ER) | payer OTHER ==
--- NOTE | 2024-03-31 01:25 | ED ---
General Adult HPI - General Source: patient, police Mode of arrival: ambulatory Limitations: no limitations <Raul French - Last Filed: 03/31/24 06:42> <Alejo Rodriguez - Last Filed: 03/31/24 10:57> - General Chief complaint: Psychiatric Symptoms Stated complaint: Petition Time Seen by Provider: 03/31/24 00:13 - History of Present Illness Initial comments: Dictation was produced using [employer] dictation software. please excuse any grammatical, word or spelling errors. Chief Complaint: 38-year-old male with suicidal ideation History of Present Illness: Patient 38-year-old male petitioned by [facility] after having confrontation with his made some suicidal comments and police had petitioned him. Patient admits to having alcohol today. Denies any suicidal ideation at the bedside. The ROS documented in this emergency department record has been reviewed and confirmed by me. Those systems with pertinent positive or negative responses have been documented in the HPI. All other systems are other negative and/or noncontributory. (Raul French) - Related Data Previous Rx's Medication Instructions Recorded levETIRAcetam [Keppra] 750 mg PO Q12HR 30 Days #60 tab 01/22/23 Penicillin V Potassium [Pen Vee K] 500 mg PO QID #40 tablet 04/22/23 levETIRAcetam [Keppra] 750 mg PO BID #60 tab 04/22/23 Allergies Allergy/AdvReac Type Severity Reaction Status Date / Time No Known Allergies Allergy Verified 03/31/24 00:11 Review of Systems ROS Other: All systems not noted in ROS Statement are negative. <Raul French - Last Filed: 03/31/24 06:42> ROS Other: All systems not noted in ROS Statement are negative. <Alejo Rodriguez - Last Filed: 03/31/24 10:57> ROS Statement: Those systems with pertinent positive or pertinent negative responses have been documented in the HPI. Past Medical History Past Medical History: Seizure Disorder Additional Past Medical History / Comment(s): seizures History of Any Multi-Drug Resistant Organisms: None Reported Past Surgical History: Appendectomy Past Anesthesia/Blood Transfusion Reactions: No Reported Reaction Past Psychological History: Anxiety, Depression Smoking Status: Current every day smoker Past Alcohol Use History: Daily, Heavy Past Drug Use History: Marijuana <Raul French - Last Filed: 03/31/24 06:42> General Exam Limitations: no limitations <Raul French - Last Filed: 03/31/24 06:42> - General Exam Comments Initial Comments: General: Well-appearing, nontoxic, no acute distress. Head: Normocephalic, atraumatic Eyes: PERRLA, EOMI ENT: Airway patent Chest: Nonlabored breathing Skin: No visual rash, normal skin tone Neuro: Alert and oriented 3 Musculoskeletal: No gross abnormalities (Raul French) Course Vital Signs 03/31/24 03/31/24 00:08 05:58 Temperature 97.7 F 98.0 F Pulse Rate 72 65 Respiratory 16 18 Rate Blood Pressure 144/95 136/48 O2 Sat by Pulse 100 99 Oximetry Medical Decision Making <Raul French - Last Filed: 03/31/24 06:42> <Alejo Rodriguez - Last Filed: 03/31/24 10:57> - Medical Decision Making Was pt. sent in by a medical professional or institution (, PA, ERGONOMIST, urgent care, hospital, or fci...) When possible be specific @ -No Did you speak to anyone other than the patient for history (EMS, parent, family, police, friend...)? What history was obtained from this source @ -Police as described above Did you review nursing and triage notes (agree or disagree)? Why? @ -I reviewed and agree with nursing and triage notes Were old charts reviewed (outside hosp., previous admission, EMS record, old EKG, old radiological studies, urgent care reports/EKG's, fci records)? Report findings @ -No old charts were reviewed Differential Diagnosis (chest pain, altered mental status, abdominal pain women, abdominal pain men, vaginal bleeding, musculoskeletal, weakness, fever, dyspnea, syncope, headache, dizziness, GI bleed, back pain, seizure, CVA, palpatations, mental health)? @ -Differential Mental Health: Depression, anxiety, bipolar, psychosis, schizophrenia, borderline personality, situational depression, adjustment disorder, behavioral disorder, brain tumor, malingering, substance abuse, encephalopathy, medication reaction, dementia, hypothyroidism, degenerative neurologic disorder, lupus.... This is not meant to be all-inclusive list EKG interpreted by me (3pts min.). @ -None done X-rays interpreted by me (1pt min.). @ -None done CT interpreted by me (1pt min.). @ -None done U/S interpreted by me (1pt. min.). @ -None done What testing was considered but not performed or refused? (CT, X-rays, U/S, labs)? Why? @ -None What meds were considered but not given or refused? Why? @ -None Was smoking cessation discussed for >3mins.? @ -No Were there social determinants of health that impacted care today? How? (Homelessness, low income, unemployed, alcoholism, drug addiction, transportation, low edu. Level, literacy, decrease access to med. care, fdc, rehab)? @ -No Was there de-escalation of care discussed even if they declined (Discuss DNR or withdrawal of care, Hospice)? DNR status @ -No What co-morbidities impacted this encounter? (DM, HTN, Smoking, COPD, CAD, Cancer, CVA, ARF, Chemo, Hep., AIDS, mental health diagnosis, sleep apnea, morbid obesity)? @ -None Was patient admitted / discharged? Hospital course, mention meds given and route, prescriptions, significant lab abnormalities, going to OR and other pertinent info. @ -38-year-old male brought in by police for psychiatric evaluation. Vital sig ns stable. Physical examination is benign. Patient's breath alcohol test is elevated. Pending sobriety for medical clearance for EPS evaluation. Patient care signed out to oncoming physician for follow-up of EPS recommendations Did you discuss the management of the patient with other professionals (professionals i.e. , PA, ERGONOMIST, lab, RT, psych nurse, foster care social worker, sales route driver, teacher, juvenile corrections officer, pillowcase cutter)? Give summary @ -No Was critical care preformed (if so, how long)? @ -No Undiagnosed new problem with uncertain prognosis? @ -No Drug Therapy requiring intensive monitoring for toxicity (Heparin, Nitro, Insulin, Cardizem)? @ -No Were any procedures done? @ -No Diagnosis/symptom? Acute, or Chronic, or Acute on Chronic? Uncomplicated (without systemic symptoms) or Complicated (systemic symptoms)? @ -Suicidal ideation Side effects of treatment? @ -No Exacerbation, Progression, or Severe Exacerbation? @ -No Poses a threat to life or bodily function? How? (Chest pain, [place], [place], pneumonia, PE, COPD, DKA, ARF, appy, cholecystitis, CVA, Diverticulitis, Homicidal, Suicidal, threat to staff... and all critical care pts) @ -yes (Raul French) Patient was evaluated by EPS after he was medically cleared. He was felt to be safe for discharge and was able to sign a safety plan. (Alejo Rodriguez) - Lab Data Lab Results 03/31/24 Range/Units 08:52 Influenza Type A (PCR) Not Detected (Not Detectd) Influenza Type B (PCR) Not Detected (Not Detectd) RSV (PCR) Not Detected (Not Detectd) SARS-CoV-2 (PCR) Not Detected (Not Detectd) Disposition <Raul French - Last Filed: 03/31/24 06:42> Is patient prescribed a controlled substance at d/c from ED?: No Time of Disposition: 10:57 <Alejo Rodriguez - Last Filed: 03/31/24 10:57> Clinical Impression: Depression Disposition: HOME SELF-CARE Condition: Fair Instructions (If sedation given, give patient instructions): Depression (ED) Referrals: None,Stated [Primary Care Provider] - 1-2 days
[2024-03-31 05:59] VITALS: RESP 18; TEMP 98
[2024-03-31 11:29] VITALS: BP 149/81; PULSE 59
[2024-03-31 11:40] LABS: Urn Cannabinoid Scrn Detected (NotDetected)
[2024-03-31 11:41] LABS: Amphetamine Screen,Urine Detected (NotDetected); Barbiturate Screen,Urine Not Detected (NotDetected); Benzodiazepines Screen,Urine Not Detected (NotDetected); Cocaine Screen,Urine Not Detected (NotDetected); Methadone Screen, Urine Not Detected (NotDetected); Opiate Screen,Urine Not Detected (NotDetected); Oxycodone Screen, Urine Not Detected (NotDetected); Phencyclidine Screen,Urine Not Detected (NotDetected); Tricyclic Antidepressant,Urine Not Detected (NotDetected)
== END 2024-03-31 11:29 | disposition home or self-care (01) ==
LOC: EC 00:05
DX: F32.A Depression, unspecified (principal); R45.851 Suicidal ideations; F17.200 Nicotine dependence, unspecified, uncomplicated
CPT/HCPCS: 80306; 82075; 87636; 99284; 99285

== ENCOUNTER 2024-06-29 14:56 | Emergency (ER) | payer OTHER ==
--- NOTE | 2024-06-29 16:20 | ED ---
Recheck HPI - General Chief Complaint: Recheck/Abnormal Lab/Rx Stated Complaint: Medication issue Time Seen by Provider: 06/29/24 16:17 Source: patient, RN notes reviewed Mode of arrival: ambulatory Limitations: no limitations - History of Present Illness Initial Comments: 39-year-old male with history of epilepsy presenting for medication refill of Keppra. States he is almost out and wants to check into [facility] however they will not accept him without medication. Has not had a seizure in over a year. He is currently asymptomatic. - Related Data Previous Rx's Medication Instructions Recorded levETIRAcetam [Keppra] 750 mg PO Q12HR 30 Days #60 tab 01/22/23 Penicillin V Potassium [Pen Vee K] 500 mg PO QID #40 tablet 04/22/23 levETIRAcetam [Keppra] 750 mg PO BID #60 tab 04/22/23 levETIRAcetam [Keppra] 750 mg PO Q12HR 30 Days #60 tab 06/29/24 Allergies Allergy/AdvReac Type Severity Reaction Status Date / Time No Known Allergies Allergy Verified 06/29/24 15:21 Review of Systems ROS Statement: Those systems with pertinent positive or pertinent negative responses have been documented in the HPI. ROS Other: All systems not noted in ROS Statement are negative. Past Medical History Past Medical History: Seizure Disorder Additional Past Medical History / Comment(s): seizures History of Any Multi-Drug Resistant Organisms: None Reported Past Surgical History: Appendectomy Past Anesthesia/Blood Transfusion Reactions: No Reported Reaction Past Psychological History: Anxiety, Depression Smoking Status: Current every day smoker Past Alcohol Use History: Daily, Heavy Past Drug Use History: Marijuana General Exam Limitations: no limitations General appearance: alert, in no apparent distress Head exam: Present: atraumatic, normocephalic, normal inspection Eye exam: Present: normal appearance, PERRL, EOMI. Absent: scleral icterus, conjunctival injection, periorbital swelling Respiratory exam: Present: normal lung sounds bilaterally. Absent: respiratory distress, wheezes, rales, rhonchi, stridor Cardiovascular Exam: Present: regular rate, normal rhythm, normal heart sounds. Absent: systolic murmur, diastolic murmur, rubs, gallop, clicks Neurological exam: Present: alert, oriented X3, CN II-XII intact Psychiatric exam: Present: normal affect, normal mood Skin exam: Present: warm, dry, intact, normal color. Absent: rash Course Vital Signs 06/29/24 15:17 Temperature 98.6 F Pulse Rate 81 Respiratory 18 Rate Blood Pressure 151/95 O2 Sat by Pulse 99 Oximetry Medical Decision Making - Medical Decision Making Was pt. sent in by a medical professional or institution (GERARDO Corcoran, PRODUCTION TOOL ENGINEER, urgent care, hospital, or intermediate...) When possible be specific @ -No Did you speak to anyone other than the patient for history (EMS, parent, family, police, friend...)? What history was obtained from this source @ -No Did you review nursing and triage notes (agree or disagree)? Why? @ -I reviewed and agree with nursing and triage notes Were old charts reviewed (outside hosp., previous admission, EMS record, old EKG, old radiological studies, urgent care reports/EKG's, intermediate records)? Report findings @ -No old charts were reviewed Differential Diagnosis (chest pain, altered mental status, abdominal pain women, abdominal pain men, vaginal bleeding, weakness, fever, dyspnea, syncope, headache, dizziness, GI bleed, back pain, seizure, CVA, palpatations, mental health, musculoskeletal)? @ -Not applicable EKG interpreted by me (3pts min.). @ -None X-rays interpreted by me (1pt min.). @ -None done CT interpreted by me (1pt min.). @ -None done U/S interpreted by me (1pt. min.). @ -None done What testing was considered but not performed or refused? (CT, X-rays, U/S, labs)? Why? @ -None What meds were considered but not given or refused? Why? @ -None Did you discuss the management of the patient with other professionals (professionals i.e. GERARDO Corcoran, PRODUCTION TOOL ENGINEER, lab, RT, psych nurse, licensed clinical social worker, blood bank specialist, teacher, chief investment officer, comp field case manager)? Give summary @ -No Was smoking cessation discussed for >3mins.? @ -No Was critical care preformed (if so, how long)? @ -No Were there social determinants of health that impacted care today? How? (Homelessness, low income, unemployed, alcoholism, drug addiction, transportation, low edu. Level, literacy, decrease access to med. care, group home, rehab)? @ -No Was there de-escalation of care discussed even if they declined (Discuss DNR or withdrawal of care, Hospice)? DNR status @ -No What co-morbidities impacted this encounter? (DM, HTN, Smoking, COPD, CAD, Cancer, CVA, ARF, Chemo, Hep., AIDS, mental health diagnosis, sleep apnea, morbid obesity)? @ -None Was patient admitted / discharged? Hospital course, mention meds given and route, prescriptions, significant lab abnormalities, going to OR and other pertinent info. @ -[Discharge. 39-year-old male with history of epilepsy presenting for medication refill of Keppra. Patient is about to run out and wants to check into [facility] therefore needs prescription. Currently asymptomatic. Has not had seizure in over a year. Provided with outpatient prescription of Keppra. Medication dosing checked with patient. Case was discussed with my ED attending Dr. Huber. Undiagnosed new problem with uncertain prognosis? @ -No Drug Therapy requiring intensive monitoring for toxicity (Heparin, Nitro, Insulin, Cardizem)? @ -No Were any procedures done? @ -No Diagnosis/symptom? @ -Medication refill Acute, or Chronic, or Acute on Chronic? @ -Acute Uncomplicated (without systemic symptoms) or Complicated (systemic symptoms)? @ -Uncomplicated Side effects of treatment? @ -No Exacerbation, Progression, or Severe Exacerbation? @ -No Poses a threat to life or bodily function? How? (Chest pain, [place], [place], pneumonia, PE, COPD, DKA, ARF, appy, cholecystitis, CVA, Diverticulitis, Homicidal, Suicidal, threat to staff... and all critical care pts) @ -No Disposition Clinical Impression: Medication refill Disposition: HOME SELF-CARE Condition: Stable Prescriptions: levETIRAcetam [Keppra] 750 mg PO Q12HR 30 Days #60 tab Is patient prescribed a controlled substance at d/c from ED?: No Referrals: None,Stated [Primary Care Provider] - 1-2 days Time of Disposition: 16:20
[2024-06-29 16:41] VITALS: BP 146/96; PULSE 86; RESP 16; TEMP 98.7
== END 2024-06-29 16:41 | disposition home or self-care (01) ==
LOC: EC 14:56
DX: Z76.0 Encounter for issue of repeat prescription (principal); F17.200 Nicotine dependence, unspecified, uncomplicated
CPT/HCPCS: 99281

== ENCOUNTER 2024-08-10 13:19 | Emergency (ER) | payer OTHER ==
--- NOTE | 2024-08-10 14:12 | ED ---
General Adult HPI - General Chief complaint: Recheck/Abnormal Lab/Rx Stated complaint: Blood testing for clearance Time Seen by Provider: 08/10/24 13:23 Source: patient, RN notes reviewed, old records reviewed Mode of arrival: ambulatory Limitations: no limitations - History of Present Illness Initial comments: 39-year-old male presenting with request for Keppra level. Patient takes Keppra with history of seizure disorder. He is attempting to check into [facility] and they are requesting a Keppra level prior to admission. The patient has been compliant with his medication he takes 750 mg twice daily. He denies any complaints and states that he has this medication at home. - Related Data Previous Rx's Medication Instructions Recorded levETIRAcetam [Keppra] 750 mg PO Q12HR 30 Days #60 tab 01/22/23 Penicillin V Potassium [Pen Vee K] 500 mg PO QID #40 tablet 04/22/23 levETIRAcetam [Keppra] 750 mg PO BID #60 tab 04/22/23 levETIRAcetam [Keppra] 750 mg PO Q12HR 30 Days #60 tab 06/29/24 Allergies Allergy/AdvReac Type Severity Reaction Status Date / Time No Known Allergies Allergy Verified 08/10/24 13:22 Review of Systems ROS Statement: Those systems with pertinent positive or pertinent negative responses have been documented in the HPI. ROS Other: All systems not noted in ROS Statement are negative. Past Medical History Past Medical History: Seizure Disorder Additional Past Medical History / Comment(s): seizures History of Any Multi-Drug Resistant Organisms: None Reported Past Surgical History: Appendectomy Past Anesthesia/Blood Transfusion Reactions: No Reported Reaction Past Psychological History: Anxiety, Depression Smoking Status: Current every day smoker Past Alcohol Use History: Daily, Heavy Past Drug Use History: Marijuana General Exam Limitations: no limitations General appearance: alert, in no apparent distress Head exam: Present: atraumatic, normocephalic Eye exam: Present: normal appearance, PERRL ENT exam: Present: normal exam Neck exam: Present: normal inspection. Absent: tenderness, meningismus Respiratory exam: Present: normal lung sounds bilaterally. Absent: respiratory distress, wheezes Cardiovascular Exam: Present: regular rate, normal rhythm GI/Abdominal exam: Present: soft, distended, tenderness Extremities exam: Present: normal inspection Neurological exam: Present: alert, oriented X3, CN II-XII intact. Absent: motor sensory deficit Psychiatric exam: Present: normal affect, normal mood Course Vital Signs 08/10/24 13:20 Temperature 98.2 F Pulse Rate 132 H Respiratory 20 Rate Blood Pressure 115/85 O2 Sat by Pulse 97 Oximetry Medical Decision Making - Medical Decision Making Was pt. sent in by a medical professional or institution (GERARDO Corcoran, SOUND DESIGNER, urgent care, hospital, or care home...) When possible be specific @ -No Did you speak to anyone other than the patient for history (EMS, parent, family, police, friend...)? What history was obtained from this source @ -No Did you review nursing and triage notes (agree or disagree)? Why? @ -I reviewed and agree with nursing and triage notes Were old charts reviewed (outside hosp., previous admission, EMS record, old EKG, old radiological studies, urgent care reports/EKG's, care home records)? Report findings @ -No old charts were reviewed Differential Diagnosis:request for Keppra level EKG interpreted by me (3pts min.). @ -As above X-rays interpreted by me (1pt min.). @ -None done CT interpreted by me (1pt min.). @ -None done U/S interpreted by me (1pt. min.). @ -None done What testing was considered but not performed or refused? (CT, X-rays, U/S, labs)? Why? @ -None What meds were considered but not given or refused? Why? @ -None Did you discuss the management of the patient with other professionals (professionals i.e. GERARDO Corcoran, SOUND DESIGNER, lab, RT, psych nurse, social director, metrology specialist, teacher, chief legal officer, manager rn case)? Give summary @ -No Was smoking cessation discussed for >3mins.? @ -No Was critical care preformed (if so, how long)? @ -No Were there social determinants of health that impacted care today? How? (Homelessness, low income, unemployed, alcoholism, drug addiction, transportation, low edu. Level, literacy, decrease access to med. care, [facility], rehab)? @ -No Was there de-escalation of care discussed even if they declined (Discuss DNR or withdrawal of care, Hospice)? DNR status @ -No What co-morbidities impacted this encounter? (DM, HTN, Smoking, COPD, CAD, Cancer, CVA, ARF, Chemo, Hep., AIDS, mental health diagnosis, sleep apnea, morbid obesity)? @ -[Seizure disorder Was patient admitted / discharged? Hospital course, mention meds given and route, prescriptions, significant lab abnormalities, going to OR and other pertinent info. @ -39-year-old male needing Keppra level. This level is drawn, results are pending. This level will need to be followed up by [facility] prior to admission. No other issues currently. Undiagnosed new problem with uncertain prognosis? @ -[No Drug Therapy requiring intensive monitoring for toxicity (Heparin, Nitro, Insulin, Cardizem)? @ -No Were any procedures done? @ -No Diagnosis/symptom? @ -Request for outpatient lab draw Acute, or Chronic, or Acute on Chronic? @ -Default Uncomplicated (without systemic symptoms) or Complicated (systemic symptoms)? @ -Default Side effects of treatment? @ -No Exacerbation, Progression, or Severe Exacerbation? @ -No Poses a threat to life or bodily function? How? (Chest pain, [place], [place], pneumonia, PE, COPD, DKA, ARF, appy, cholecystitis, CVA, Diverticulitis, Homicidal, Suicidal, threat to staff... and all critical care pts) @ -No Disposition Clinical Impression: Routine lab draw Disposition: HOME SELF-CARE Condition: Fair Additional Instructions: Please have [facility] obtain the results of this Keppra level lab draw as needed. Is patient prescribed a controlled substance at d/c from ED?: No Referrals: None,Stated [Primary Care Provider] - 1-2 days Time of Disposition: 14:11
[2024-08-10 14:13] VITALS: BP 136/84; PULSE 107; RESP 16; TEMP 98.1
== END 2024-08-10 14:15 | disposition home or self-care (01) ==
LOC: EC 13:19
DX: Z02.83 Encounter for blood-alcohol and blood-drug test (principal); G40.909 Epilepsy, unspecified, not intractable, without status epilepticus; F17.200 Nicotine dependence, unspecified, uncomplicated; Z79.899 Other long term (current) drug therapy
CPT/HCPCS: 36415; 80177; 99282